=== PATIENT | female | born 1980 | race Caucasian/White ===

== ENCOUNTER 2018-05-14 11:09 | Outpatient (REF) | payer BC, SELFPAY ==
--- NOTE | 2018-05-14 10:30 | PAPFT_PTH ---
PATIENT: Kaylee Duckworth LOC: [facility] U#:[id number] AGE/SX: 38/F ROOM: RE05/14/[address]: Roselia Smith NP : 1980 BED: DIS: 05/14/2018 SPEC #: [id number] RECD: 05/14/18 13:13 STATUS: DARIANA CABRAL #: [id number] HANNAH: 05/14/18 10:[address]: Roselia Smith NP DEPT: [facility] Cytology RECD BY: Hanh Bobo ENTERED: 05/14/18 13:13 SP TYPE: PAPFT OTHR DR: Gideon Chavez Tissues: 1 - CX/ENDOCX FOR PAP SMEARS Procedures: PAP THIN PREP/UVM Screening HPV DNA PROBE Comments: [id number]
[2018-05-14 21:23] LABS: Anion Gap 8.4 mmol/L (3-11); BUN 8 mg/dL (7-18); CO2 31.6 mmol/L (21.0-32.0); Chloride 103 mmol/L (98-107); Cholesterol 133 mg/dL (50-200); Glucose 87 mg/dL (70-100); HDL Cholesterol 54 mg/dL (40-60); LDL CHOLESTEROL 70 mg/dL (<100); Magnesium 1.7 mg/dL (1.8-2.4); Potassium 3.6 mmol/L (3.5-5.1); Sodium 143 mmol/L (136-145)
[2018-05-14 22:04] LABS: Triglyceride < 25 mg/dL (30-150)
== END 2018-05-14 11:29 ==
LOC: LBN 11:09
PROVIDERS: PCP Specialist/Technologist Athletic Trainer; Visit Provider Nurse Practitioner Women's Health
DX: Z00.00 Encounter for general adult medical examination without abnormal findings (principal); Z13.220 Encounter for screening for lipoid disorders; Z13.228 Encounter for screening for other metabolic disorders; Z12.4 Encounter for screening for malignant neoplasm of cervix; Z11.51 Encounter for screening for human papillomavirus (HPV)
CPT/HCPCS: 80048; 80061; 83721; 88142; 83735; 87624

== ENCOUNTER 2018-07-13 14:44 | Outpatient (CLI) | payer BC, SELFPAY ==
[2018-07-14 19:58] LABS: Squash, IgE <0.35 kU/L
[2018-07-15 14:07] LABS: IgA 165 mg/dL (85-499); Interpretation SEE COMMENTS; Tissue Transglutaminase IgA >100.0 U/mL (<4.0)
== END 2018-07-13 15:04 ==
PROVIDERS: PCP Specialist/Technologist Athletic Trainer; Visit Provider Otolaryngology Otolaryngology/Facial Plastic Surgery
DX: R19.7 Diarrhea, unspecified (principal); R14.0 Abdominal distension (gaseous); R22.0 Localized swelling, mass and lump, head; R23.2 Flushing
CPT/HCPCS: 36415; 82784; 83516; 86003

== ENCOUNTER 2019-05-17 08:57 | Outpatient (REF) | payer BC, SELFPAY ==
[2019-05-17 21:23] LABS: Abs Immature Grans 0.01 k/cumm (0.0-0.09); Absolute Eosinophil Count 0.34 k/cumm (0.0-0.7); Absolute Lymphocyte Count 1.24 k/cumm (1.2-3.4); Absolute Monocyte Count 0.47 k/cumm (0.11-0.7); Absolute Neutrophil Count 5.61 k/cumm (1.2-6.7); Basophils % 1.3; Eosinophils % 4.4; HGB 14.6 g/dL (12.0-15.5); Immature Grans % 0.1; Mean Corpuscular Hemoglobin 31.7 pg (27.0-33.0); Mean Corpuscular Volume 93.3 fL (80-95); Mean Platelet Volume 9.8 fL (8.0-11.0); Neutrophils % 72.2; Platelet Count 311 x1000/uL (130-400); RBC 4.61 m/cumm (4.00-5.20); RBC Distribution Width 12.1 % (11.7-14.6); White Blood Cell Count 7.77 k/cumm (4.4-10.8)
[2019-05-17 22:10] LABS: TSH (W/Ref FT4) 1.49 uIU/mL (0.36-3.74)
== END 2019-05-17 09:17 ==
LOC: NCHCN 08:57
PROVIDERS: PCP Specialist/Technologist Athletic Trainer; Visit Provider Nurse Practitioner Family
DX: Z00.00 Encounter for general adult medical examination without abnormal findings (principal); K90.0 Celiac disease
CPT/HCPCS: 84443; 85025

== ENCOUNTER 2019-05-31 18:21 | Outpatient (REF) | payer OTHER, SELFPAY ==
--- NOTE | 2019-05-31 11:34 | SKI_PTH ---
PATIENT: Kaylee Duckworth LOC: [place] U#:[id number] AGE/SX: 39/F ROOM: RE05/31/[address]: Geovanni Bello DO : 1980 BED: DIS: 05/31/2019 SPEC #: [id number] RECD: 05/31/19 18:26 STATUS: DARIANA RELynn #: [id number] HANNAH: 05/31/19 11:[address]: Geovanni Bello DEPT: Surgical Specimen RECD BY: Hanh Bobo ENTERED: 05/31/19 18:27 SP TYPE: SUZETTE GUERRA DR: iGdeon Chavez Tissues: 1 - SKIN BIOPSY(SHAVE/PUNCH) Procedures: SKIN LEVEL 4 Comments: [id number]
== END 2019-05-31 18:41 ==
LOC: LBN 18:21
PROVIDERS: PCP Specialist/Technologist Athletic Trainer; Visit Provider Otolaryngology Otolaryngology/Facial Plastic Surgery
DX: L82.1 Other seborrheic keratosis (principal)
CPT/HCPCS: 88305

== ENCOUNTER 2020-01-27 04:17 | Outpatient (CLI) | payer OTHER, SELFPAY ==
[2020-01-27 10:04] LABS: Abs Immature Grans 0.03 10^3/uL (0.0-0.06); Absolute Basophil Count 0.08 10^3/uL (0.0-0.2); Absolute Eosinophil Count 0.24 10^3/uL (0.0-0.7); Absolute Lymphocyte Count 1.38 10^3/uL (1.2-3.4); Absolute Monocyte Count 0.44 10^3/uL (0.1-0.8); Absolute Neutrophil Count 6.19 10^3/uL (1.2-6.7); Eosinophils % 2.9; HCT 42.3 % (36.0-46.0); HGB 14.4 g/dL (11.2-15.7); Immature Grans % 0.4; Lymphocytes % 16.5; MCH 31.6 pg (27.0-33.0); MPV 8.9 fL (8.0-11.0); Monocytes % 5.3; Neutrophils % 73.9; Nucleated RBC 0 %; Platelet Count 315 10^3/uL (130-400); RBC 4.55 10^6/uL (3.93-5.22); RDW 11.9 % (11.7-14.6); RDW-SD 40.7 fL; WBC 8.36 10^3/uL (4.4-10.8)
[2020-01-27 10:55] LABS: Iron 141 ug/dL (50-170); Total Iron Binding Capacity 248 ug/dL (250-450); Transferrin Sat 57 % (15-50)
[2020-01-27 11:10] LABS: Ferritin 46 ng/mL (8-252)
[2020-01-27 13:09] LABS: Vitamin D 25 Total 27.7 ng/ml (30-100)
[2020-01-28 09:55] LABS: IgA 173 mg/dL (85-499)
[2020-01-28 16:12] LABS: Zinc, Serum 0.65 mcg/mL (0.66-1.10)
[2020-01-29 12:44] LABS: Free Retinol (Vitamin A) 36.3 mcg/dL (32.5-78.0)
== END 2020-01-27 04:37 ==
PROVIDERS: PCP Nurse Practitioner Family; Visit Provider Internal Medicine Gastroenterology
DX: K90.0 Celiac disease (principal)
CPT/HCPCS: 36415; 82306; 82784; 82728; 82746; 83540; 83550; 84590; 84630; 85025

== ENCOUNTER 2020-03-22 02:42 | Outpatient (CLI) | payer OTHER, SELFPAY ==
--- NOTE | 2020-03-22 | DI.DEXA_ITS ---
EXAM: XR DEXA BONE DENSITY W/WO YOHANNES CLINICAL HISTORY: CELIAC DISEASE, ? OSTEOPENIA OR OSTEOPOROSIS,K90.0 TECHNIQUE: COMPARISON: No exams were available for comparison FINDINGS: DEXA scan was performed according to the usual protocol. Findings for left hip scanning are T-score -2.2 with left femoral neck T-score -1.5. Findings for lumbar spine scanning are T-score -1.5. Findings for left forearm scanning are T-score -0.3 IMPRESSION: Findings consistent with osteopenia according to the WHO criteria. The lateral vertebral scanogram s hows no evidence of a vertebral compression fracture. RADIATION DOSE DELIVERED: Total DLP
== END 2020-03-22 03:02 ==
PROVIDERS: PCP Nurse Practitioner Family; Visit Provider Internal Medicine Gastroenterology
DX: K90.0 Celiac disease (principal); M85.89 Other specified disorders of bone density and structure, multiple sites
CPT/HCPCS: 77080

== ENCOUNTER 2020-05-15 08:10 | Outpatient (CLI) | payer OTHER, SELFPAY ==
--- NOTE | 2020-05-15 | DI.RAD_ITS ---
EXAM: XR HAND RT COMPLETE CLINICAL HISTORY: HAND PAIN, M79.643. TECHNIQUE: 2D digital imaging was performed. COMPARISON: CR XR HAND LT COMPLETE from 05/15/2020 FINDINGS: BONES: No acute fracture is present. No bony destructive lesion is seen. JOINTS: No dislocation present. SOFT TISSUE: Normal. IMPRESSION: Unremarkable radiographs of the right hand. DATA REPOSITORY: RADIATION DOSE DELIVERED:
--- NOTE | 2020-05-15 | DI.RAD_ITS ---
EXAM: XR HAND LT COMPLETE CLINICAL HISTORY: LT RING FINGER PALMAR AREA PAIN, ? GANGLION CYST, SYSTEMIC NODULES, FH RA. TECHNIQUE: 2D digital imaging was performed. COMPARISON: No exams were available for comparison FINDINGS: BONES: No acute fracture is present. No bony destructive lesion is seen. JOINTS: No dislocation present. SOFT TISSUE: Normal. IMPRESSION: Unremarkable radiographs of the left hand. DATA REPOSITORY: RADIATION DOSE DELIVERED:
== END 2020-05-15 08:30 ==
PROVIDERS: PCP Nurse Practitioner Family; Visit Provider Nurse Practitioner Family
DX: M79.641 Pain in right hand (principal); M79.642 Pain in left hand
CPT/HCPCS: 73130

== ENCOUNTER 2020-06-14 02:37 | Outpatient (CLI) | payer OTHER, SELFPAY ==
--- NOTE | 2020-06-14 15:00 | DI.MAMMO_ITS ---
EXAM: MG MAMMO SCREENING CLINICAL HISTORY: screening TECHNIQUE: Bilateral full field digital CC and MLO mammographic images were obtained with 3D tomosyn thesis and utilizing computer aided detection (CAD). COMPARISON: None. FINDINGS: Masses/Architectural Distortion: None seen. Microcalcifications: No suspicious pleomorphic-type are seen. Skin Thickening/Nipple Retraction: None. IMPRESSION: 1. No significant interval change with no specific features of malignancy noted. 2. Unless there is more urgent need, screening mammography is recommended, as per [employer] guidelines. BI-RADS Category 1 - Negative Breast Density - Category B - Scattered areas of fibroglandular density Breast density category C or D implies that the patient has dense breast tissue. Dense breast tissue is very common and is not abnormal but dense breast tissue can make it harder to find cancer on a ma mmogram. Also, dense breast tissue may increase their breast cancer risk. This information about the result of the mammogram report was provided to the patient to raise their awareness. Use this report when you speak with the patient about their risks for breast cancer, which includes their family hist ory. At that time, you may recommend for more screening tests (Ultrasound or MRI) as they might be us eful based on their risk. A negative radiographic report should not delay biopsy if a dominant or clinically suspicious mass is present. Up to ten percent of cancers are not identified on mammography. A negative report may reinforce clinical impression. Adenosis and dense breasts may obscure an underlying neoplasm. False positive reports average 6 to 10%. Patient will receive a letter notifying them of these results.
== END 2020-06-14 02:57 ==
PROVIDERS: PCP Nurse Practitioner Family; Visit Provider Nurse Practitioner Women's Health
DX: Z12.31 Encounter for screening mammogram for malignant neoplasm of breast (principal)
CPT/HCPCS: 77063; 77067

== ENCOUNTER 2021-02-05 14:19 | Outpatient (REF) | payer OTHER, SELFPAY ==
[2021-02-05 20:59] LABS: TSH (W/Ref FT4) 1.26 uIU/mL (0.36-3.74)
== END 2021-02-05 14:20 | disposition home or self-care (01) ==
LOC: NCHCN 14:19
PROVIDERS: PCP Nurse Practitioner Family; Referring Provider Nurse Practitioner Family; Visit Provider Nurse Practitioner Family
DX: R63.5 Abnormal weight gain (principal)
CPT/HCPCS: 84443

== ENCOUNTER 2021-04-13 18:01 | Outpatient (REF) | payer OTHER, SELFPAY ==
--- NOTE | 2021-04-13 15:27 | SKI_PTH ---
PATIENT: Kaylee Duckworth LOC: [facility] U#:[id number] AGE/SX: 41/F ROOM: RE04/13/[address]: PABLITO Mcdowell : 1980 BED: DIS: 04/13/2021 SPEC #: [id number] RECD: 04/13/21 18:05 STATUS: DARIANA RELynn #: [id number] HANNAH: 04/13/21 15:[address]: Shivam Alanis DEPT: Surgical Specimen RECD BY: Hanh Bobo ENTERED: 04/13/21 18:06 SP TYPE: SUZETTE GUERRA DR: Yisel Hernández Tissues: 1 - SKIN BIOPSY(SHAVE/PUNCH) Procedures: SKIN LEVEL 4 Comments: [id number]
== END 2021-04-13 18:02 | disposition home or self-care (01) ==
LOC: LBN 18:01
PROVIDERS: PCP Nurse Practitioner Family; Visit Provider Physician Assistant
DX: D23.39 Other benign neoplasm of skin of other parts of face (principal)
CPT/HCPCS: 88305

== ENCOUNTER 2021-05-15 13:42 | Outpatient (REF) | payer OTHER, SELFPAY ==
[2021-05-15 16:18] LABS: Calculated LDL 78 mg/dL (<100); Cholesterol 142 mg/dL (<200); Glucose 83 mg/dL (74-106); HDL Cholesterol 57 mg/dL (40-60); Triglyceride 36 mg/dL (<150)
== END 2021-05-15 13:43 | disposition home or self-care (01) ==
LOC: NCHCN 13:42
PROVIDERS: PCP Nurse Practitioner Family; Visit Provider Nurse Practitioner Family
DX: Z00.00 Encounter for general adult medical examination without abnormal findings (principal); Z13.1 Encounter for screening for diabetes mellitus; Z13.220 Encounter for screening for lipoid disorders
CPT/HCPCS: 80061; 82947

== ENCOUNTER 2021-06-28 03:00 | Outpatient (CLI) | payer OTHER, SELFPAY ==
[2021-06-28 11:16] LABS: ESR 1 mm/hr (0-20)
[2021-06-28 11:59] LABS: C-Reactive Protein 0.06 mg/dL (0.0-0.3)
[2021-06-28 21:11] LABS: Thyroglobulin Antibody <15 U/mL (<=60); Thyroperoxidase Antibody <28 U/mL (<=60)
[2021-06-29 14:25] LABS: ANA Interpretation Negative (Negative)
[2021-07-03 13:12] LABS: dsDNA Ab, IgG 12.9 IU/mL (<30.0)
== END 2021-06-28 03:01 | disposition home or self-care (01) ==
LOC: LBO 03:01
PROVIDERS: PCP Nurse Practitioner Family; Visit Provider Physician Assistant
DX: K90.0 Celiac disease (principal); L56.8 Other specified acute skin changes due to ultraviolet radiation; L50.8 Other urticaria
CPT/HCPCS: 36415; 85652; 86376; 84443; 86003; 86038; 86140; 86225

== ENCOUNTER 2021-08-07 00:40 | Outpatient (CLI) | payer OTHER, SELFPAY ==
--- NOTE | 2021-08-07 16:27 | DI.MAMMO_ITS ---
Exam(s) MAMMO SCREENING EXAM: MAMMO SCREENING CLINICAL HISTORY: screening. TECHNIQUE: Bilateral full field digital CC and MLO mammographic images were obtained with 3D tomosyn thesis and utilizing computer aided detection (CAD). COMPARISON: Prior mammograms of May 2020 was reviewed. FINDINGS: There are no CAD designations. There has been no significant change in appearance and distribution of the fibroglandular tissue. There are no new spiculated masses nor malignant appearing microcalcification groups. There is no significant architectural distortion nor skin thickening-retraction. IMPRESSION: No radiographic evidence of malignancy. BI-RADS Category 1 - Negative Breast Density - Category B - Scattered areas of fibroglandular density Breast density Category C or D implies that the patient has dense breast tissue. Dense breast tissue can make it harder to find cancer on a mammogram. Dense breast tissue is also associated with an incr eased risk of breast cancer. This information about the result of the mammogram report was provided to the patient to raise their awareness. Use this report when you speak with the patient about their risks for breast cancer, which includes their family history. At that time, you may recommend additional screening tests (Ultrasoun d or MRI) as these tests may add significant information. A negative radiographic report should not delay biopsy if a dominant or clinically suspicious mass is present. Up to ten percent of cancers are not identified on mammography. A negative report may reinforce clinical impression. Adenosis and dense breasts may obscure an underlying neoplasm. False positive reports average 6 to 10%. Patient will receive a letter notifying them of these results.
== END 2021-08-07 01:00 ==
PROVIDERS: PCP Nurse Practitioner Family; Visit Provider Nurse Practitioner Women's Health
DX: Z12.31 Encounter for screening mammogram for malignant neoplasm of breast (principal)
CPT/HCPCS: 77063; 77067

== ENCOUNTER → 2021-12-20 02:25 | Outpatient (CLI) | payer OTHER, SELFPAY ==
--- NOTE | 2021-12-20 | DI.DEXA_ITS ---
Exam(s) XR DEXA BONE DENSITY W/WO YOHANNES EXAM: XR DEXA BONE DENSITY W/WO YOHANNES CLINICAL HISTORY: OSTEOPENIA, M85.80 TECHNIQUE: COMPARISON: CR XR DEXA BONE DENSITY W/WO YOHANNES from 03/22/2020 FINDINGS: Lateral Spine Image: Unremarkable. No compression deformities identified. Left hip: Total T-Score: -2.1. This compares to -2.2 on the prior examination for improvement in the bone can line examiner al density. Total Z-Score: -1.9 T- and Z-scores: Findings consistent with osteopenia. Lumbar Spine: Total T-Score: -1.6. This compares to -1.5 on the prior examination which is a decrease in the bone m ineral density. Total Z-Score: -1.3 T- and Z-scores: Findings are consistent with osteopenia. IMPRESSION: No evidence of osteoporosis.
== END ==
PROVIDERS: PCP Nurse Practitioner Family; Visit Provider Nurse Practitioner Family
DX: Z13.820 Encounter for screening for osteoporosis (principal); M85.89 Other specified disorders of bone density and structure, multiple sites
CPT/HCPCS: 77080

== ENCOUNTER 2022-08-26 03:38 | Outpatient (CLI) | payer OTHER, SELFPAY ==
[2022-08-27 19:20] LABS: Avocado, IgE <0.35 kU/L; Corn-Food IgE <0.35 kU/L; Cucumber IgE <0.35 kU/L; Soybean IgE <0.35 kU/L; Watermelon, IgE <0.35 kU/L
[2022-08-27 19:29] LABS: Egg Whole IgE <0.10 kU/L
== END 2022-08-26 03:39 | disposition home or self-care (01) ==
PROVIDERS: PCP Nurse Practitioner Family; Visit Provider Physician Assistant
DX: J30.1 Allergic rhinitis due to pollen (principal); Z01.82 Encounter for allergy testing
CPT/HCPCS: 36415; 86003

== ENCOUNTER 2022-09-01 20:39 | Emergency (ER) | payer OTHER, SELFPAY ==
[2022-09-01] VITALS (16 sets, daily range): BP systolic 98–141; BP diastolic 51–75; PULSE 73–88; RESP 14–21; TEMP 36.2; O2SAT 97–100
--- NOTE | 2022-09-01 21:00 | DI.CT_ITS ---
Exam(s) CT ABDOMEN PELVIS W EXAM: CT ABDOMEN PELVIS W CLINICAL HISTORY: periumbilical pain x1hr TECHNIQUE: Imaging Protocol: Axial computed tomography images with coronal and sagittal reformatted images were created and reviewed CONTRAST MATERIAL: Intravenous: Omnipaque 350 Contrast volume:100 mL Oral: No COMPARISON: No exams were available for comparison FINDINGS: ABDOMEN: Lung Bases: Emphysematous changes are seen in the lung bases. Liver: Normal density. No measurable mass. Portal, Superior Mesenteric, and Splenic Veins: Unremarkable. Gallbladder and Biliary Tract: No radiodense calculus or dilation. Pancreas: Normal density, no abnormal calcifications or inflammatory process. Spleen: Normal. Adrenals: No masses seen. Kidneys: Normal size, contour and axis. No radiodense stones or obstructive uropathy. No masses seen. Abdominal Aorta: Abdominal portion non-dilated. Mild atherosclerosis. Bowel: No obstruction or bowel wall thickening. Appendix is unremarkable. Peritoneal Cavity: No significant ascites, collection or mesenteric inflammatory response. No free a ir. Lymph Nodes: Within normal limits. Bones: Within normal limits for the patient's age. Soft Tissues: There is a small fat containing umbilical hernia. PELVIS: Bladder: Symmetric distention, no gross wall thickening. There is a tiny focus of air in the dependen t urinary bladder. This may represent recent instrumentation such as with catheterization. Please c orrelate clinically.. Reproductive Organs: Unremarkable as visualized. There is an IUD which appears in good position. Lymph Nodes: Within normal limits. Bones: Within normal limits for the patient's age. IMPRESSION: No acute abdominal or pelvic process. RADIATION DOSE DELIVERED: 942.8mGy.cm Total DLP DATA REPOSITORY: All CT scans at this facility are submitted to the National Radiology Data Registry (NRDR) Dose Index Registry (DIR) with the [employer] (A[employer]). RADIATION OPTIMIZATION: All CT scans at this facility use at least one of these dose optimization te chniques: automated exposure control; mA and/or kV adjustment per patient size (includes targeted exa ms where dose is matched to clinical indication); or iterative reconstruction.
--- NOTE | 2022-09-01 21:05 | ED.GENADUL_ITS ---
Discharge Plan Disposition Patient Disposition: Home Condition: Stable Discharge Details Clinical Impression: Abdominal pain Primary Care Provider: Yisel Hernández ED Provider: Arnulfo Dunn Home Meds and New Rx's Prescriptions: Continued Mirena 20 mcg/24 hr (5 years) intrauterine device 1 insert IY ONCE cholecalciferol (vitamin D3) 25 mcg (1,000 unit) capsule 25 mcg PO DAILY epinephrine [EpiPen 2-Micheal] 0.3 mg/0.3 mL auto-injector 0.3 mg IM Q5-15M PRN Rx Instructions: do not exceed 3 doses per episode ibuprofen 800 mg tablet 800 mg PO Q8H PRN (Reason: pain) Qty: 28 0RF Rx Instructions: Instructed to take with food. Use for shortest possible time. baclofen 5 mg tablet See Rx Instructions PO TID PRN (Reason: Back Spasm) Qty: 30 1RF Rx Instructions: 5 mg tab. Take 1-2 three times a day PRN; multivitamin with iron Tablet 1 tab PO 1XD Discharge Instructions Instructions: Abdominal Pain (ED) Additional Instructions: Continue bowel rest. Clear liquids only tonight and tomorrow morning. You can advance your diet tomorrow afternoon as tolerated. Please contact your primary care physician to arrange follow-up. Return to the ER immediately for any worsening or new concerning symptoms. Referrals: Yisel Hernández [Primary Care Provider] - Medical Decision Making 2100 --43-year-old female here with sudden onset severe abdominal pain about an hour prior to arrival. Pain has since improved but still has some discomfort. She is focally tender periumbilical and right abdomen. Concern for acute appendicitis. Plan to obtain CT of the abdomen pelvis to assess for acute surgical pathology. -- Labs reviewed and nondiagnostic. CT of the abdomen pelvis was interpreted by radiology: IMPRESSION: No significant abnormality. Patient reassessed and noted significant improvement - pain resolved. Plan for discharge with outpatient follow-up. Disposition decision was made weighing the risks and benefits of hospitalization versus outpatient treatment, the risk for further decompensation, and the patient's wishes. The patient was stable. Prior to discharge, my usual and customary return precautions were reviewed with the patient - this included follow-up instructions and reason to return to the emergency department if condition worsens, does not improve as expected, or other new concerns arise. Lab Data Lab results reviewed: Yes I reviewed the patient's lab results. Labs: Laboratory Tests Range/Units 09/01/22 09/01/22 09/01/22 20:45 20:50 20:50 WBC (4.4-10.8) 10^3/uL 7.73 RBC (3.93-5.22) 10^6/uL 4.49 Hgb (11.2-15.7) g/dL 14.2 Hct (36.0-46.0) % 41.3 MCV (80-95) fL 92 MCH (27.0-33.0) pg 31.6 MCHC (32.0-36.0) % 34.4 RDW (11.7-14.6) % 12.4 Plt Count (130-400) 10^3/uL 307 MPV (8.0-11.0) fL 9.5 Immature Gran % 0.4 Neutrophils % 44.6 Lymphocytes % 40.1 Monocytes % 8.7 Eosinophils % 4.5 Basophils % 1.7 Nucleated RBC % (0.0-0.3) % 0.0 Absolute Neutrophils (1.2-6.7) 10^3/uL 3.45 Absolute Lymphocytes (1.2-3.4) 10^3/uL 3.10 Absolute Monocytes (0.1-0.8) 10^3/uL 0.67 Absolute Eosinophils (0.0-0.7) 10^3/uL 0.35 Absolute Basophils (0.0-0.2) 10^3/uL 0.13 Sodium (136-145) mmol/L 140 Potassium (3.5-5.1) mmol/L 3.8 Chloride (98-107) mmol/L 104 Carbon Dioxide (21.0-32.0) mmol/L 28.9 Anion Gap (3-11) mmol/L 7.1 BUN (7-18) mg/dL 14 Creatinine (0.55-1.02) mg/dL 1.1 H Est GFR (CKD-EPI 2020) (mL/min/1.73m2) 64.34 Glucose (74-106) mg/dL 94 Calcium (8.5-10.1) mg/dL 9.1 Total Bilirubin (0.2-1.0) mg/dL 1.1 H AST (15-37) U/L 32 ALT (14-59) U/L 28 Alkaline Phosphatase (46-116) U/L 57 Total Protein (6.4-8.2) g/dL 6.5 Albumin (3.4-5.0) g/dL 3.8 Lipase (16-77) U/L 31 Urine Color (Yellow) Yellow Urine Clarity (Clear) Clear Urine pH (5-8) 6.0 Ur Specific [place] (1.005-1.025) 1.025 Urine Protein (Negative) mg/dL Negative Urine Ketones (Negative) mg/dL Negative Urine Blood (Negative) Negative Urine Nitrite (Negative) Negative Urine Bilirubin (Negative) Negative Urine Urobilinogen (Up to 0.2) mg/dL 1.0 H Ur Leukocyte Esterase (Negative) Negative Urine Glucose (Negative) mg/dL Negative HPI General Mode of arrival: ambulatory . Date/Time Provider Initiated Documentation: 09/01/22 20:49 . Limitations to Documentation: no limitations . Information obtained by: patient . HPI Narrative: 42-year-old female with history of celiac disease, here with chief complaint of abdominal pain. Patient notes about an hour prior to arrival she had sudden onset of severe mid abdominal pain localized to her bellybutton. She had associated nausea and chills. Patient notes pain was sharp and unbearable. Patient continues to have some discomfort in the area although is now mild. She has no pain radiated to the right side of her abdomen. Patient did have normal bowel movement this morning. No recent bright red blood per rectum or melena. Related Data Home Medications Medication Instructions Recorded Confirmed levonorgestrel 21 mcg/24 hours (8 1 insert intrauterine ONCE 05/29/18 09/01/22 yrs) 52 mg intrauterine device (Mirena) cholecalciferol (vitamin D3) 25 25 mcg PO DAILY 05/29/20 09/01/22 mcg (1,000 unit) capsule epinephrine 0.3 mg/0.3 mL 0.3 mg IM Q5-15M PRN 05/29/20 09/01/22 injection, auto-injector (EpiPen 2-Micheal) ibuprofen 800 mg tablet 800 mg PO Q8H PRN pain #28 tabs 10/12/20 09/01/22 baclofen 5 mg tablet See Rx Instructions PO TID PRN 10/30/20 09/01/22 Back Spasm #30 tabs multivitamin with iron 1 tab PO 1XD 09/01/22 09/01/22 Previous Rx's Medication Instructions Recorded ibuprofen 800 mg tablet 800 mg PO Q8H PRN pain #28 tabs 10/12/20 baclofen 5 mg tablet See Rx Instructions PO TID PRN 10/30/20 Back Spasm #30 tabs Allergies Allergy/AdvReac Type Severity Reaction Status Date / Time squash Allergy Severe Anaphylaxsi Verified 09/01/22 20:53 s No Known Drug Allergies Allergy Verified 09/01/22 20:53 General Stated Complaint: Abd Prob BREANNE: 3 Review of Systems All systems reviewed & are unremarkable except as noted in HPI and below Constitutional Constitutional: Denies fever(s) Gastrointestinal Gastrointestinal: Reports as per HPI PFSH All Active Problems (Updated 09/01/22 @ 23:03 by Arnulfo Dunn MD) Abdominal pain (Acute) Food allergy (Acute) Environmental allergies (Acute) Chronic Urticaria (Acute) LPRD (laryngopharyngeal reflux disease) (Acute) Insomnia (Acute) Low back pain potentially associated with radiculopathy (Acute) Neoplasm of unspecified behavior of bone, soft tissue, and skin (Acute) IUD surveillance (Acute) Celiac disease (Acute) Dysmenorrhea (Chronic) managed with IUD Medical History Infertility 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 Surgical History History of dilation and curettage x3 s/p missed ab Family History Father , lung ca Heart attack Lung cancer Maternal Grandmother Breast cancer Maternal Grandfather Diabetes Brother Prediabetes Social History Smoking/Tobacco Use Status: Former Tobacco Use Quit Date: 02/22/17 Tobacco: How many years used: 24 Smoking risk assessment performed?: Yes Alcohol Intake: never Substance use type: does not use Do you feel safe at home: Yes Do you feel safe in your relationship?: Yes Female Reproductive History Menstrual Duration of menses: 6-7 days control method: progestin IUCD History History 4 Para 1 Hx # Term Pregnancies Multiple births Hx # Pregnancies Ectopic pregnancies AB induced Hx Number of Living Children AB spontaneous 3 Exam Const General: cooperative and no acute distress HENMT Mouth: moist mucous membranes Eyes Conjunctivae: normal conjunctivae Sclera: normal sclerae EOM: EOM intact bilaterally Neck Neck: trachea midline and supple Resp Auscultation: clear to auscultation bilaterally, no rales, no rhonchi and no wheezes Cardio Rate: regular rate and not tachycardic Rhythm: regular rhythm GI Palpation: soft, not firm, no guarding, no masses, not rigid and tender in the RLQ and periumbilically Skin General skin exam: no rashes or lesions noted Neuro General: patient alert, patient awake and tone normal Cognition: normal cognition Extrem General: no edema Psych Appearance: grossly normal Mental Status: mental status grossly normal Course Vital Signs Vital signs: Vital Signs Temperature 36.2 C L 09/01/22 20:45 Pulse 73 09/01/22 20:45 Respiratory Rate 18 09/01/22 20:45 Blood Pressure 130/74 09/01/22 20:45 Pulse Oximetry 99 09/01/22 20:45 Temperature 36.2 C L 09/01/22 20:45 Pulse 73 09/01/22 20:45 Respiratory Rate 18 09/01/22 20:45 Respiratory Effort Normal 09/01/22 20:49 Blood Pressure 130/74 09/01/22 20:45 Blood Pressure Position Supine 09/01/22 20:45 Pulse Oximetry 99 09/01/22 20:45 Oxygen Delivery Method Room Air 09/01/22 20:45 Oxygen Flow Rate 0 09/01/22 20:45 Pain Level 9 09/01/22 20:49
[2022-09-01 21:18] LABS: Abs Immature Grans 0.03 10^3/uL (0.0-0.06); Absolute Basophil Count 0.13 10^3/uL (0.0-0.2); Absolute Eosinophil Count 0.35 10^3/uL (0.0-0.7); Absolute Monocyte Count 0.67 10^3/uL (0.1-0.8); Absolute Neutrophil Count 3.45 10^3/uL (1.2-6.7); Basophils % 1.7; Eosinophils % 4.5; HCT 41.3 % (36.0-46.0); HGB 14.2 g/dL (11.2-15.7); Immature Grans % 0.4; Lymphocytes % 40.1; MCH 31.6 pg (27.0-33.0); MCHC 34.4 % (32.0-36.0); MCV 92 fL (80-95); MPV 9.5 fL (8.0-11.0); Monocytes % 8.7; Neutrophils % 44.6; Platelet Count 307 10^3/uL (130-400); RBC 4.49 10^6/uL (3.93-5.22); RDW 12.4 % (11.7-14.6); RDW-SD 41.9 fL; WBC 7.73 10^3/uL (4.4-10.8)
[2022-09-01 21:20] LABS: Bilirubin Negative (Negative); Blood Negative (Negative); Clarity Clear (Clear); Glucose Negative (Negative); Ketones Negative (Negative); Leukocyte Esterase Negative (Negative); Nitrite Negative (Negative); Specific Gravity 1.025 (1.005-1.025)
[2022-09-01] MEDS: Omnipaque 350 MG/ML 100 ML BTL IJ (21:28)
[2022-09-01] MEDS: Normal Saline - Diluent 50 ML VIAL IJ (21:29)
[2022-09-01 21:37] LABS: ALT 28 U/L (14-59); AST 32 U/L (15-37); Albumin 3.8 g/dL (3.4-5.0); Alkaline Phosphatase 57 U/L (46-116); Anion Gap 7.1 mmol/L (3-11); BUN 14 mg/dL (7-18); Bilirubin, Total 1.1 mg/dL (0.2-1.0); CO2 28.9 mmol/L (21.0-32.0); CREATININE 1.1 mg/dL (0.55-1.02); Calcium 9.1 mg/dL (8.5-10.1); Chloride 104 mmol/L (98-107); Estimated GFR 64.34 (mL/min/1.73m2); Glucose 94 mg/dL (74-106); Lipase 31 U/L (16-77); Potassium 3.8 mmol/L (3.5-5.1); Sodium 140 mmol/L (136-145); Total Protein 6.5 g/dL (6.4-8.2)
[2022-09-01] MEDS: Normal Saline Flush 10 ML SYR IVP (21:37)
--- NOTE | 2022-09-01 22:10 | DI.VRAD_ITS ---
PROCEDURE INFORMATION: Exam: CT Abdomen And Pelvis With Contrast Exam date and time: 09/01/2022 9:29 PM Age: 42 years old Clinical indication: Abdominal pain; Patient HX: Periumbilical pain x1hr TECHNIQUE: Imaging protocol: Computed tomography of the abdomen and pelvis with contrast. COMPARISON: No relevant prior studies available. FINDINGS: Liver: Normal. No mass. Gallbladder and bile ducts: Gallbladder is contracted. No biliary duct Pancreas: Normal. No ductal dil dilatation. ation. Spleen: Normal. No splenomegaly. Adrenal glands: Normal. No mass. Kidneys and ureters: Normal. No hydronephrosis. Stomach and bowel: Unremarkable. No obstruction. No mucosal thickening. Appendix: Normal appendix. Intraperitoneal space: Unremarkable. No free air. No significant fluid collection. Vasculature: Calcified atherosclerotic disease of proximal common iliac arteries. No aneurysm. Lymph nodes: Unremarkable. No enlarged lymph nodes. Urinary bladder: Unremarkable as visualized. Reproductive: Intrauterine device in place. Uterus and adnexa are otherwise unremarkable. Bones/joints: Unremarkable. No acute fracture. Soft tissues: Unremarkable. IMPRESSION: No significant abnormality. Dictated and Authenticated by: Pete Ibarra MD. Ordering:HUY Arredondo MD
== END 2022-09-01 23:18 | disposition home or self-care (01) ==
PROVIDERS: Emergency Provider Student in an Organized Health Care Education/Training Program; PCP Nurse Practitioner Family
DX: R10.33 Periumbilical pain (principal)
CPT/HCPCS: 80053; 81025; 83690; 99285; 74177; 81003; 85025; 99283; J3490

== ENCOUNTER 2022-09-11 09:50 | Day surgery (SDC) | payer OTHER, SELFPAY ==
--- NOTE | 2022-09-11 07:03 | W.PM.ENDDOP ---
Date of service: 09/11/22 Time of Service: 11:25 Endoscopy Report DATE OF PROCEDURE: 09/11/22 PRE-OP DIAGNOSIS: Celiac and abdominal pain POST-OP DIAGNOSIS: same (and gastritis) PROCEDURE: EGD with biopsies SURGEON: Ashlee Valladares ANESTHESIA TYPE: General:No Airway ESTIMATED BLOOD LOSS: 2 PATHOLOGY: other (Bx of duodenum, stomach and GE junction) COMPLICATIONS: None DISPOSITION: same day INDICATIONS: Mrs Liriano is a pleasant 42-year-old female who has a history of celiac disease and GI complaints.? She has been fairly stable until few months ago when she started to have more gas and discomfort.? She feels quite bloated.? On September 01 she actually went to the emergency department because the pain was much more severe than she has ever had.? It was periumbilical and radiated to the right upper quadrant and epigastric area.? CT scan was unremarkable.? I discussed with her the fact that even though the CT scan was negative she could still have some biliary issues.? This may also be due to gastritis or ulcers.? She should have had an upper endoscopy when she was diagnosed with celiac a few years ago.? I think it is reasonable to start with an EGD with biopsies as per GI recommendations.? If there are no ulcers and no inflammation then I will order an ultrasound of her gallbladder to assess that a little bit better. The upper endoscopy procedure was reviewed with her in detail as well as the risks and complications.? Risks, benefits and complications have been reviewed. Complications include but are not limited to bleeding, pain, perforation, sore throat, aspiration, and adverse reaction to the medications.? Questions were entertained and answered to their satisfaction and they wished to proceed. No guarantees were given or implied.? The patient seemed to understand the risks benefits and complications as described. PROCEDURE DESCRIPTION: After informed consent was obtained the patient was take to the procedure room and placed in a supine position. Monitors were applied and a time out was done. The patients name, date of , procedure type, allergies to medications and metal in their body was reviewed. A bite block was placed and the patient was sedated. Once sedated and comfortable the gastroscope was advanced through the oropharynx which was grossly normal into the esophagus. The proximal and mid-esophagus were normal. In the distal esophagus there was mild inflammation noted. The scope was advanced into the stomach and through the pylorus into the 3rd portion of the duodenum. The duodenum was noted to be normal. Biopsies were done. The scope was retracted back into the stomach. There was inflammation noted throughout the stomach. Biopsies were done of the antrum and Body to rule out H. pylori. There were no ulcers. The scope was retroflexed. The cardia and fundus were noted to be normal. There was no hiatal hernia noted. The scope was retracted back into the esophagus and biopsies were done of the GE junction to rule out Enrique's. The Z line was regular. The GE junction was at 38 cm. The scope was removed and the patient was woken up and taken back to [facility] in stable condition. Follow up: 2 weeks. start Pepcid 40 mg BID
--- NOTE | 2022-09-11 07:08 | W.PM.DSUDISC ---
Date of service: 09/11/22 Time of Service: 11:25 Discharge Plan Disposition Patient Disposition: Home Condition: Stable Discharge Details Reason For Visit: Celiac disease and abdominal pain Attending Provider: Ashlee Valladares Primary Care Provider: Yisel Hernández Home Meds and New Rx's Prescriptions: New famotidine [Pepcid] 40 mg tablet 40 mg PO BID Qty: 60 0RF Continued Mirena 20 mcg/24 hr (5 years) intrauterine device 1 insert IY ONCE cholecalciferol (vitamin D3) 25 mcg (1,000 unit) capsule 25 mcg PO DAILY epinephrine [EpiPen 2-Micheal] 0.3 mg/0.3 mL auto-injector 0.3 mg IM Q5-15M PRN Rx Instructions: do not exceed 3 doses per episode glucosamine HCl 1,500 mg tablet 1,500 mg PO DAILY Rx Instructions: administer with a meal loratadine [Allergy Relief (loratadine)] 10 mg tablet 10 mg PO DAILY ibuprofen 800 mg tablet 800 mg PO Q8H PRN (Reason: pain) Qty: 28 0RF Rx Instructions: Instructed to take with food. Use for shortest possible time. baclofen 5 mg tablet See Rx Instructions PO TID PRN (Reason: Back Spasm) Qty: 30 1RF Rx Instructions: 5 mg tab. Take 1-2 three times a day PRN; hydroxyzine HCl 25 mg tablet 25 mg PO BID PRN cholecalciferol (vitamin D3) 125 mcg (5,000 unit) capsule 125 mcg PO DAILY ferrous sulfate [Feosol] 325 mg (65 mg iron) tablet 325 mg PO DAILY multivitamin with iron Tablet 1 tab PO 1XD Discharge Instructions Instructions: Gastritis (DC), Diet for Stomach Ulcers and Gastritis (ED) Additional Instructions: Findings: Inflamation of the stomach Follow up: 2 weeks in the office Please call if you develop: fevers >101.5 Nausea or Vomiting Abdominal pain that is not transient Rectal bleeding that is more then a tbsp A hard abdomen and inability to pass gas DAY SURGERY UNIT POST ENDOSCOPY INSTRUCTIONS Instructions for everyone who is given Anesthesia: For your safety, please do the following for the next 24 Hours: a. Do not drive or operate dangerous equipment b. Do not drink alcohol beverages or use any recreational drugs for the first 24 hours or while taking pain medications. The medications in your body may have a reaction that can be dangerous. c. Do not make any important decisions or sign any important papers 1. Generally there are no restrictions on your activity after a day or so has gone by, but you may feel a bit fatigued for a few days. 2. After you arrive home you may have a light meal and return to a normal diet as you can tolerate it without feeling sick to your stomach. 3. After surgery, you may feel pain or discomfort. This should be only transient, but if it persists please contact your doctor. 4. If there are any questions regarding the findings of your procedure, please feel free to contact your doctor. 6. If you are unable to contact your doctor with a problem, contact the hospital at [phone]. 7. Continue all your regular medications unless directed otherwise. I understand the above instructions and have no questions. Signature of Patient or Responsible Adult Escort Date/Time Name of Responsible Adult Escort Signature of Nurse Date/Time Referrals: Ashlee Valladares MD [ [facility] STAFF PHYSICIAN] - 09/27/22 11:00 am Activity:: Activity as Tolerated Diet:: as above Discharge Orders Discharge Orders: Discharge Order (Routine); Ordered 09/11/22 Ordered By: Ashlee Valladares
[2022-09-11 09:50] VITALS: BP 136/93; PULSE 66; RESP 16; TEMP 36.5; O2SAT 99
[2022-09-11] MEDS: Lactated Ringers 1,000 ML 80 ML IV (10:22)
--- NOTE | 2022-09-11 10:38 | ANES.PREOP_ITS ---
General Info Date of Service Date Performed: 09/11/22 Height: 5 ft 7 in Weight: 73.8 kg Body Mass Index (BMI): 25.4 Surgical Procedure: Operation Date: 09/11/22 11:50 Proposed Procedure Side Surgeon p Gastroscopy Ashlee Valladares MD Actual Procedure Side Surgeon p Gastroscopy Not Applicable Ashlee Valladares MD Pre-Op Diagnosis Post-Op Diagnosis Celiac disease and abdominal pain Celiac disease and abdominal pain Meds Allergies and Home Medications Allergies Allergy/AdvReac Type Severity Reaction Status Date / Time adhesive tape Allergy Severe Verified 09/11/22 10:00 barley Allergy Severe Verified 09/11/22 10:00 grass pollen Allergy Severe Verified 09/11/22 10:00 squash Allergy Severe Anaphylaxsi Verified 09/11/22 10:00 s No Known Drug Allergies Allergy Verified 09/11/22 10:00 cow milk Allergy Severe Uncoded 09/11/22 10:00 mold Allergy Intermediate runny Uncoded 09/11/22 10:00 nose, sneezing Home Medication Medication Instructions Recorded levonorgestrel 21 mcg/24 hours (8 1 insert intrauterine ONCE 05/29/18 yrs) 52 mg intrauterine device (Mirena) cholecalciferol (vitamin D3) 25 25 mcg PO DAILY 05/29/20 mcg (1,000 unit) capsule epinephrine 0.3 mg/0.3 mL 0.3 mg IM Q5-15M PRN 05/29/20 injection, auto-injector (EpiPen 2-Micheal) ibuprofen 800 mg tablet 800 mg PO Q8H PRN pain #28 tabs 10/12/20 baclofen 5 mg tablet See Rx Instructions PO TID PRN 10/30/20 Back Spasm #30 tabs multivitamin with iron 1 tab PO 1XD 09/01/22 cholecalciferol (vitamin D3) 125 125 mcg PO DAILY 09/05/22 mcg (5,000 unit) capsule ferrous sulfate 325 mg (65 mg 325 mg PO DAILY 09/05/22 iron) tablet (Feosol) hydroxyzine HCl 25 mg tablet 25 mg PO BID PRN 09/05/22 glucosamine HCl 1,500 mg tablet 1,500 mg PO DAILY 09/06/22 loratadine 10 mg tablet (Allergy 10 mg PO DAILY 09/06/22 Relief (loratadine)) PFSH Active Problems Active Problems: Problem Status Onset Code Osteopenia M85.80 Snoring R06.83 Abdominal pain R10.9 Food allergy Z91.018 Environmental allergies Z91.09 Chronic Urticaria L50.8 LPRD (laryngopharyngeal reflux disease) K21.9 Insomnia G47.00 Low back pain potentially associated with radiculopathy M54.5 Neoplasm of unspecified behavior of bone, soft tissue, and skin D49.2 IUD surveillance Z30.431 Celiac disease K90.0 Dysmenorrhea N94.6 Medical History Medical History Hives Infertility 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 Skin lesion of face Surgical History Surgical History History of dilation and curettage x3 s/p missed ab S/P colonoscopy [facility] [place] Tobacco Smoking/Tobacco Use Status: Former Tobacco Use Alcohol Alcohol Intake: never Substance Use Substance use: Rarely Substance use type: marijuana Prental History History 4 Para 1 Hx # Term Pregnancies Multiple births Hx # Pregnancies Ectopic pregnancies AB induced Hx Number of Living Children AB spontaneous 3 Vital Signs and Lab Results Vital Signs Most Recent Vital Signs in EMR: Most Recent Vital Signs Temp Pulse Resp BP Pulse Ox 36.5 C 66 16 136/93 H 99 09/11/22 09:50 09/11/22 09:50 09/11/22 09:50 09/11/22 09:50 09/11/22 09:50 Point of Care Results Point of Care Results: POC- Test(urine) Negative 09/11/22 10:29 Lab Results Blood Type / Crossmatch: No Data to Display Complete Blood Count: White Blood Count 7.73 10^3/uL (4.4-10.8) 09/01/22 20:50 Red Blood Count 4.49 10^6/uL (3.93-5.22) 09/01/22 20:50 Hemoglobin 14.2 g/dL (11.2-15.7) 09/01/22 20:50 Hematocrit 41.3 % (36.0-46.0) 09/01/22 20:50 Platelet Count 307 10^3/uL (130-400) 09/01/22 20:50 Complete Metabolic Panel: Sodium 140 mmol/L (136-145) 09/01/22 20:50 Potassium 3.8 mmol/L (3.5-5.1) 09/01/22 20:50 Chloride 104 mmol/L (98-107) 09/01/22 20:50 Carbon Dioxide 28.9 mmol/L (21.0-32.0) 09/01/22 20:50 BUN 14 mg/dL (7-18) 09/01/22 20:50 Creatinine 1.1 mg/dL (0.55-1.02) H 09/01/22 20:50 Est GFR (CKD-EPI 2020) 64.34 (mL/min/1.73m2) 09/01/22 20:50 Calcium 9.1 mg/dL (8.5-10.1) 09/01/22 20:50 Albumin 3.8 g/dL (3.4-5.0) 09/01/22 20:50 Glucose 94 mg/dL (74-106) 09/01/22 20:50 Liver Function Panel: Alanine Aminotransferase (ALT/SGPT) 28 U/L (14-59) 09/01/22 20: 50 Aspartate Amino Transf (AST/SGOT) 32 U/L (15-37) 09/01/22 20:50 Coagulation Panel: No Data to Display Cardiac Panel: No Data to Display Arterial Blood Gas: No Data to Display Venous Blood Gas: No Data to Display Pancreas Panel: Lipase 31 U/L (16-77) 09/01/22 20:50 Thyroid Panel: No Data to Display Infectious Disease: No Data to Display Blood Cultures: No Data to Display Toxicology Panel: 2 No Data to Display Panel: No Data to Display Anesthesia Assessment and Plan Anesthesia History Personal History: No History of Anesthesia Complications Family History: No Family History of Anesthesia Complications Exercise Tolerance Exercise Tolerance: Metabolic Equivalents>4 Pertinent Negatives Pertinent Negatives: No Symptoms of GERD, No Major Cardiovascular Symptoms or Complaints and No Major Pulmonary Symptoms or Complaints Cardiac & Pulmonary Exam Cardiac Exam: Normal S1/S2 Heart Sounds Pulmonary Exam: Clear Bilateral Breath Sounds Implantable Cardiac Device Does patient have a Pacemaker or an ICD?: No Airway Exam Known Difficult Airway: No Mallampati Class: 2 Mouth Opening: Normal (> 3cm) Thyromental Distance: Greater than 3 cm Neck Range of Motion: Full ROM Neck Circumference: Normal Teeth Condition: Normal Dentition ASA Classification ASA Score: ASA 2 Emergency Case?: No NPO Status NPO Status: NPO Clears >2 hours, Solids >8 hours Status Status: Negative HCG Anesthesia Plan Resuscitation Status: Full Code Anesthesia Technique: General Anesthesia Airway Planned: Natural Airway Monitors Used: Standard Monitors
[2022-09-11 10:43] VITALS: BMI 25.4
--- NOTE | 2022-09-11 11:04 | PGE_ITS ---
Date of Service Date of service: 09/11/22 Time of Service: 11:04 Assessment and Plan Assessment and plan (1) Abdominal pain: Status: Acute Assessment and plan: Risks, benefits and complications were reviewed again. Patient has no questions and understands the risks discussed. She wishes to proceed (2) Celiac disease: Status: Acute Subjective Subjective Interval history since last seen: Patient seen in [facility]. She is doing well. She has no questions Exam Resp Effort & Inspection: normal respiratory effort Auscultation: clear to auscultation bilaterally Cardio Rate: regular rate Rhythm: regular rhythm Objective Last Vital Signs Temp 97.7 F 09/11/22 09:50 Pulse 66 09/11/22 09:50 Resp 16 09/11/22 09:50 BP 136/93 H 09/11/22 09:50 Pulse Ox 99 09/11/22 09:50 Time Spent with Patient Time Spent with Patient: <25 minutes Time was spent: counseling the patient
--- NOTE | 2022-09-11 11:14 | STOM_PTH ---
PATIENT: Kaylee Duckworth LOC: [facility] U#:[id number] AGE/SX: 42/F ROOM: RE09/11/[address]: Ashlee Valladares MD : 1980 BED: DIS: 09/11/2022 SPEC #: [id number] RECD: 09/11/22 12:49 STATUS: DARIANA RELynn #: [id number] HANNAH: 09/11/22 11:[address]: Ashlee Valladares DEPT: Surgical Specimen RECD BY: Hanh Bobo ENTERED: 09/11/22 12:50 SP TYPE: STOMACH OTHR DR: Yisel Hernández Tissues: 1 - BIOPSY BOWEL 2 - STOMACH BIOPSY 3 - STOMACH BIOPSY 4 - ESOPHAGUS BIOPSY Procedures: GROSS AND MICRO LEVEL 4 Comments: [id number]
[2022-09-11 11:27] VITALS: BP 125/75; PULSE 79; RESP 16; TEMP 37; O2SAT 99
[2022-09-11 11:55] VITALS: BP 128/86; PULSE 55; RESP 16; TEMP 36.6; O2SAT 100
[2022-09-11] MEDS: Calcium Carbonate *TUMS* 500 MG CHEW 1000 MG PO (11:58)
[2022-09-11] MEDS: Famotidine 20 MG TAB 40 MG PO (11:59)
--- NOTE | 2022-09-11 11:59 | W.ANESPOSTOP ---
Postoperative Evaluation Date, Time and Location Date Performed: 09/11/22 Time Performed: 11:59 Patient Location: Day Surgery Unit Vital Signs Most Recent Imported Vital Signs: Most Recent Vital Signs Temp Pulse Resp BP Pulse Ox 37 C 79 16 125/75 99 09/11/22 11:27 09/11/22 11:27 09/11/22 11:27 09/11/22 11:27 09/11/22 11:27 Pain Score Most Recent Pain Score: Most Recent Pain Score Pain Level 0 09/11/22 11:27 Assessment Mental Status: Awake (Alert & Oriented to Patient Baseline) Airway and Respiratory Function: Patent airway with normal (patient baseline) respiratory exam Cardiovascular Function: Hemodynamically Stable Hydration Status: Adequately Hydrated Nausea & Vomiting: No Nausea or Vomiting Pain: Pt. Denies Any Pain Peripheral Nerve Block: Patient did not receive a nerve block
== END 2022-09-11 12:58 | disposition home or self-care (01) ==
PROVIDERS: PCP Nurse Practitioner Family; Visit Provider Surgery
PROC: 0DJ68ZZ Inspection of Stomach, Via Natural or Artificial Opening Endoscopic (ICD-10-PCS; CPT 43235; principal; 2022-09-11 11:45)
DX: K90.0 Celiac disease; K29.70 Gastritis, unspecified, without bleeding; K31.89 Other diseases of stomach and duodenum
CPT/HCPCS: 43239; 81025; 88305

== ENCOUNTER 2022-09-18 02:52 | Outpatient (CLI) | payer OTHER, SELFPAY ==
[2022-09-18 12:56] LABS: ALT 22 U/L (14-59); AST 21 U/L (15-37); Alkaline Phosphatase 51 U/L (46-116); Anion Gap 5.5 mmol/L (3-11); BUN 13 mg/dL (7-18); Bilirubin, Direct 0.3 mg/dL (0.0-0.2); Bilirubin, Total 1.7 mg/dL (0.2-1.0); CO2 27.5 mmol/L (21.0-32.0); Chloride 104 mmol/L (98-107); Estimated GFR 72.13 (mL/min/1.73m2); Glucose 80 mg/dL (74-106); Sodium 137 mmol/L (136-145); Total Protein 6.9 g/dL (6.4-8.2)
[2022-09-19 23:08] LABS: Avocado, IgE <0.35 kU/L; Corn-Food IgE <0.35 kU/L; Cucumber IgE <0.35 kU/L; Soybean IgE <0.35 kU/L; Watermelon, IgE <0.35 kU/L
[2022-09-19 23:37] LABS: Egg Whole IgE <0.10 kU/L
== END 2022-09-18 02:53 | disposition home or self-care (01) ==
PROVIDERS: PCP Nurse Practitioner Family; Visit Provider Nurse Practitioner Family
DX: J31.0 Chronic rhinitis (principal); R89.9 Unspecified abnormal finding in specimens from other organs, systems and tissues; Z91.018 Allergy to other foods; Z91.09 Other allergy status, other than to drugs and biological substances; T78.1XXD Other adverse food reactions, not elsewhere classified, subsequent encounter
CPT/HCPCS: 36415; 80048; 80076; 86001; 86003

== ENCOUNTER 2022-09-26 15:11 | Outpatient (REF) | payer OTHER, SELFPAY | END 2022-09-26 15:12 | disposition home or self-care (01) | LOC: NCHCN 15:11 | PROVIDERS: PCP Nurse Practitioner Family; Visit Provider Nurse Practitioner Family | DX: R35.0 Frequency of micturition (principal) | CPT/HCPCS: 87086 ==

== ENCOUNTER 2022-10-15 10:32 | Outpatient (REF) | payer OTHER, SELFPAY ==
--- NOTE | 2022-10-15 09:40 | PAPFT_PTH ---
PATIENT: Kaylee Duckworth LOC: [facility] U#:[id number] AGE/SX: 42/F ROOM: RE10/15/[address]: Roselia Smith NP : 1980 BED: DIS: 10/15/2022 SPEC #: [id number] RECD: 10/15/22 12:59 STATUS: DARIANA REQ #: [id number] HANNAH: 10/15/22 09:[address]: Roselia Smith NP DEPT: [facility] Cytology RECD BY: Hanh Bobo ENTERED: 10/15/22 12:59 SP TYPE: PAPFT OTHR DR: Yisel Hernández Tissues: 1 - CX/ENDOCX FOR PAP SMEARS Procedures: PAP THIN PREP/UVM Screening HPV DNA PROBE Comments: [id number]
== END 2022-10-15 10:33 | disposition home or self-care (01) ==
LOC: LBN 10:32
PROVIDERS: PCP Nurse Practitioner Family; Visit Provider Nurse Practitioner Women's Health
DX: Z12.4 Encounter for screening for malignant neoplasm of cervix (principal); Z11.51 Encounter for screening for human papillomavirus (HPV)
CPT/HCPCS: 88142; 87624

== ENCOUNTER 2023-01-30 04:13 | Outpatient (CLI) | payer OTHER, SELFPAY ==
[2023-01-30 17:01] LABS: Abs Immature Grans 0.01 10^3/uL (0.0-0.06); Absolute Basophil Count 0.08 10^3/uL (0.0-0.2); Absolute Eosinophil Count 0.25 10^3/uL (0.0-0.7); Absolute Lymphocyte Count 2.27 10^3/uL (1.2-3.4); Absolute Monocyte Count 0.52 10^3/uL (0.1-0.8); Absolute Neutrophil Count 3.57 10^3/uL (1.2-6.7); Basophils % 1.2; Eosinophils % 3.7; HCT 41.1 % (36.0-46.0); HGB 13.9 g/dL (11.2-15.7); Immature Grans % 0.1; Lymphocytes % 33.9; MCH 31.4 pg (27.0-33.0); MCHC 33.8 % (32.0-36.0); MCV 93 fL (80-95); MPV 9.2 fL (8.0-11.0); Monocytes % 7.8; Neutrophils % 53.3; Platelet Count 274 10^3/uL (130-400); RBC 4.43 10^6/uL (3.93-5.22); RDW 11.5 % (11.7-14.6); RDW-SD 39.8 fL
[2023-01-30 17:49] LABS: Iron 79 ug/dL (50-170); Total Iron Binding Capacity 246 ug/dL (250-450); Transferrin Sat 32 % (15-50)
[2023-01-30 18:12] LABS: Vitamin D 25 Total 43.7 ng/mL (30-100)
[2023-01-30 18:17] LABS: ALT 22 U/L (14-59); AST 17 U/L (15-37); Albumin 3.7 g/dL (3.4-5.0); Alkaline Phosphatase 58 U/L (46-116); Bilirubin, Total 1.5 mg/dL (0.2-1.0); Ferritin 76 ng/mL (8-252); Folate 13.6 ng/mL (8.6-20.0); Total Protein 6.6 g/dL (6.4-8.2); Vitamin B12 600 pg/mL (193-986)
[2023-01-30 18:34] LABS: Bilirubin, Direct 0.3 mg/dL (0.0-0.2)
[2023-02-03 12:13] LABS: Copper, Serum 105 mcg/dL (77-206)
[2023-02-03 12:46] LABS: Tissue Transglutaminase IgA 1.9 U/mL (<4.0)
[2023-02-03 13:13] LABS: Zinc, S 56 mcg/dL (60-106)
== END 2023-01-30 04:14 | disposition home or self-care (01) ==
PROVIDERS: PCP Nurse Practitioner Family; Visit Provider Internal Medicine Gastroenterology
DX: K90.0 Celiac disease (principal); E80.6 Other disorders of bilirubin metabolism
CPT/HCPCS: 36415; 80076; 82306; 82525; 84630; 82607; 82728; 82746; 83540; 83550; 85025

== ENCOUNTER 2023-03-14 10:31 | Day surgery (SDC) | payer OTHER, SELFPAY ==
--- NOTE | 2023-03-13 20:04 | HPE_ITS ---
Date of service: 03/14/23 Time of Service: 12:39 Assessment and Plan Assessment and plan (1) Abdominal pain: Status: Inactive Assessment and plan: We reviewed the plan for diagnostic colonoscopy today, and anticipated biopsies. She has no new questions. We will proceed as planned. History of Present Illness History of Present Illness Chief Complaint: Abdominal pain Narrative: Kaylee is 42 years old, and she is referred here for colonoscopy. Her past medical history is most significant for celiac disease, which was first noted during elimination diet because of recurrent yeast infections. This was confirmed with serum testing demonstrating TTG IGA > 100. She has had some mild improvement in her symptoms over the years with a strict gluten-free diet. Most recently, she has developed midepigastric abdominal symptoms. She underwent EGD in August of this year that had clinical features of gastritis, but biopsies were more consistent with gastropathy. She sees gastroenterology at [facility], and is currently undergoing work-up for mildly elevated serum bilirubin level. The pain typically starts around the umbilicus and radiates towards the flanks. Although she has had some improvement in her reflux symptoms, her other abdominal pain has persisted, and is now associated with an approximate 10 pound unintentional weight loss. Since her last office visit, she started on some Neurontin to help with restless leg syndrome, and she has had some improvement in her those symptoms. PFSH All Active Problems TMJ (temporomandibular joint disorder) (Acute) Osteopenia (Acute) Snoring (Acute) Food allergy (Acute) Environmental allergies (Acute) Chronic Urticaria (Acute) LPRD (laryngopharyngeal reflux disease) (Acute) Insomnia (Acute) Low back pain potentially associated with radiculopathy (Acute) Neoplasm of unspecified behavior of bone, soft tissue, and skin (Acute) IUD surveillance (Acute) Celiac disease (Acute) Dysmenorrhea (Chronic) managed with IUD Medical History PLMD (periodic limb movement disorder) Skin lesion of face Hives Infertility 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 Surgical History [place] [facility] [place] of dilation and curettage x3 s/p missed ab Family History Father , lung ca Heart attack Lung cancer Maternal Grandmother Breast cancer Maternal Grandfather Diabetes Brother Prediabetes Social History Smoking/Tobacco Use Status: Former Tobacco Use Quit Date: 02/22/17 Tobacco: How many years used: 24 Smoking risk assessment performed?: Yes Alcohol Intake: current Alcohol Intake frequency: holidays/special occasions only Alcohol type: beer Drug use: Rarely Substance use type: marijuana Details: gummies a few months ago Housing: house Do you feel safe at home: Yes Do you feel safe in your relationship?: Yes Female Reproductive History Menstrual Duration of menses: 6-7 days control method: progestin IUCD History History 4 Para 1 Hx # Term Pregnancies Multiple births Hx # Pregnancies Ectopic pregnancies AB induced Hx Number of Living Children AB spontaneous 3 Meds Allergies and Home Medications Allergies Allergy/AdvReac Type Severity Reaction Status Date / Time adhesive tape Allergy Severe Verified 03/14/23 10:54 barley Allergy Severe Verified 03/14/23 10:54 grass pollen Allergy Severe Verified 03/14/23 10:54 squash Allergy Severe Anaphylaxsi Verified 03/14/23 10:54 s Penicillins Allergy Unknown on allergy Verified 03/14/23 10:54 testing cow milk Allergy Severe Uncoded 03/14/23 10:54 mold Allergy Intermediate runny Uncoded 03/14/23 10:54 nose, sneezing Home Medications Medication Instructions Recorded Confirmed Type levonorgestrel 21 mcg/24 hours (8 1 insert intrauterine ONCE 05/29/18 03/14/23 History yrs) 52 mg intrauterine device (Mirena) epinephrine 0.3 mg/0.3 mL 0.3 mg IM Q5-15M PRN 05/29/20 03/14/23 History injection, auto-injector (EpiPen 2-Micheal) multivitamin with iron 1 tab PO 1XD 09/01/22 03/14/23 History ferrous sulfate 325 mg (65 mg 325 mg PO DAILY 09/05/22 03/14/23 History iron) tablet (Feosol) hydroxyzine HCl 25 mg tablet 25 mg PO BID PRN 09/05/22 03/14/23 History loratadine 10 mg tablet (Allergy 10 mg PO DAILY 09/06/22 03/14/23 History Relief (loratadine)) cholecalciferol (vitamin D3) 25 50 mcg PO DAILY 01/29/23 03/14/23 History mcg (1,000 unit) capsule psyllium husk 3.4 gram/5.4 gram 2 tsp PO DAILY 01/29/23 03/14/23 History oral powder (Metamucil) gabapentin 100 mg capsule 100 mg PO DAILY 03/14/23 03/14/23 History Exam Const General: cooperative, healthy appearing and not in acute distress Neck Neck: normal visual inspection, no lymphadenopathy and supple Resp Effort & Inspection: normal respiratory effort Auscultation: clear to auscultation bilaterally Cardio Jugular venous pressure: no JVD Rate: regular rate Rhythm: regular rhythm Heart Sounds: S1 normal and S2 normal GI Inspection: normal to inspection Palpation: soft, no guarding, no hernias and nontender Percussion: normal to percussion Auscultation: normal bowel sounds Neuro General: patient alert, patient awake and patient oriented x3 Psych Appearance: grossly normal Time Spent Time spent with Patient: <40 minutes Time was spent: preparing to see the patient(eg.review tests) and counseling the patient
--- NOTE | 2023-03-13 20:06 | W.PM.DSUDISC ---
Date of service: 03/14/23 Time of Service: 13:26 Discharge Plan Disposition Patient Disposition: Home Condition: Good Discharge Details Reason For Visit: Diagnostic colonoscopy Attending Provider: Marlon Fisher Primary Care Provider: Yisel Hernández Home Meds and New Rx's Prescriptions: Continued Mirena 20 mcg/24 hr (5 years) intrauterine device 1 insert IY ONCE epinephrine [EpiPen 2-Micheal] 0.3 mg/0.3 mL auto-injector 0.3 mg IM Q5-15M PRN Rx Instructions: do not exceed 3 doses per episode cholecalciferol (vitamin D3) 25 mcg (1,000 unit) capsule 50 mcg PO DAILY loratadine [Allergy Relief (loratadine)] 10 mg tablet 10 mg PO DAILY Metamucil 3.4 gram/5.4 gram powder 2 tsp PO DAILY Rx Instructions: mix into at least 4 oz water or juice before administering hydroxyzine HCl 25 mg tablet 25 mg PO BID PRN ferrous sulfate [Feosol] 325 mg (65 mg iron) tablet 325 mg PO DAILY multivitamin with iron Tablet 1 tab PO 1XD gabapentin 100 mg capsule 100 mg PO DAILY Discharge Instructions Additional Instructions: Kaylee, we were able to complete your colonoscopy today without any difficulty. The quality of your prep was excellent, and I could see everything very nicely. I did not see any active signs of inflammation, or anything else that would explain your abdominal discomfort. I did perform random biopsies along the length of the colon to rule out other forms of colitis that may not be evident to the naked eye. Incidentally, I also found a very small single polyp. I removed this completely. I will have it sent off and tested. Information from that polyp can be used to help guide future screening colonoscopies. Once I have all those results I will be in touch. 1. If tolerated, consume a soft, low fiber diet for 1-2 days. [address] Do not drive, drink alcohol, operate machinery, make critical decisions, or do activities that require coordination or balance for 24 hours. 3. Because air was put into your colon during the procedure, expelling air from your rectum (passing gas or farting) is normal. 4. You may not have a bowel movement for 1-3 days because of the colonoscopy prep. This is normal. 5. Go directly to the emergency room if you notice any of the following: Develop chills (warm to touch), or if you have a thermometer and your temperature is above 101 Difficulty breathing or difficultly swallowing Persistent vomiting Severe abdominal pain, other than gas cramps Severe chest pain Black, tarry stools Any bleeding ? exceeding one tablespoon 6. Call your physician if the site where your intravenous was started becomes red, swollen, painful, and warm to touch. 7. Your physician has reviewed your pre-procedure medications. Please continue to take those medications as previously ordered. You will be given specific information/education regarding any changes to your medications before leaving. Activity:: Activity as Tolerated Diet:: As Tolerated Discharge Orders Discharge Orders: Discharge Order (Routine); Ordered 03/13/23 Ordered By: Marlon Fisher DS: Diagnosis Discharge Diagnosis (1) Abdominal pain: Status: Inactive
--- NOTE | 2023-03-13 20:08 | COLE_ITS ---
Date of service: 03/14/23 Time of Service: 13:28 Colonoscopy Report Date of procedure: 03/14/23 Pre-op diagnosis general: Abdominal pain Post-op diagnosis procedure note: other (Normal-appearing colonoscopy) Procedure: Colonoscopy with random biopsies and single polypectomy Surgeon: Marlon Fisher Anesthesia Type: General:No Airway Estimated blood loss (mL): 5 Pathology: other (0.25 cm colon polyp at 45 cm from the anus; random colon biopsies) Complications: None Disposition: same day Indications: Kaylee is 42 years old, and she is referred here for colonoscopy because of abdominal pain. The pain typically starts around the umbilicus and radiates towards the flanks. Although she has had some improvement in her reflux symptoms, her other abdominal pain has persisted, and is now associated with an approximate 10 pound unintentional weight loss. Prep: Miralax/Dulcolax Procedure Start Time: 12:47 Procedure End Time: 13:08 Retraction Time: 16 Findings: Normal-appearing colonoscopy, 0.25 cm polyp at 45 cm Procedure Description: After the induction of monitored anesthetic care, and with the patient in left lateral decubitus position, I began by performing an external anorectal exam.? Perineum and skin were normal, as was the anal verge.? There was no evidence of external hemorrhoids.? Next, I performed a digital rectal exam.? I did not appreciate any abnormal findings.? Next, I advanced a colonoscope into the rect al vault.? I performed retroflexion.? This appeared normal.? Using insufflation, I then advanced the colonoscope beyond the rectal folds and into the sigmoid colon before advancing towards the cecum.? The scope was noted to be in the cecum by identification of the ileocecal valve and appendiceal orifice.? I then began withdrawing the colonoscope using repeated irrigation as necessary for full evaluation of the colonic mucosa. In order to rule out microscopic colitis, I did perform random biopsies in the cecum, ascending, transverse, descending and sigmoid colons. These were all sent as a single specimen. All of these biopsies were performed with cold forceps, and there was no worrisome bleeding. Around 45 cm from the anal verge I identified a 0.25 cm polyp. ?It appeared sessile in character. ?I was able to remove this with a cold forcep polypectomy. ?I examined the site, and there was minimal bleeding. ?Once this was completed, I continued to withdraw the scope and examine the remainder of the colonic mucosa. Once the scope was withdrawn to the level of the rectum, great care was taken to examine portions of the rectal folds.? The quality of the bowel prep using the [facility] prep score was 3, 3, 3 from right to left. finally, the scope was withdrawn and the patient was brought to the same-day surgery recovery unit as the anesthetic wore off. ?The findings and instructions were shared with the patient prior to discharge.
[2023-03-14 10:41] VITALS: BP 143/62; PULSE 67; RESP 17; TEMP 36.5; O2SAT 100
[2023-03-14] MEDS: Lactated Ringers 1,000 ML 80 ML IV (11:02)
[2023-03-14 12:37] VITALS: BMI 24.0
--- NOTE | 2023-03-14 12:37 | W.ANESPRE ---
General Info Date of Service Date Performed: 03/14/23 Height: 5 ft 7 in Weight: 69.7 kg Body Mass Index (BMI): 24.0 Surgical Procedure: Operation Date: 03/14/23 12:05 Proposed Procedure Side Surgeon randa Fisher MD Meds Allergies and Home Medications Allergies Allergy/AdvReac Type Severity Reaction Status Date / Time adhesive tape Allergy Severe Verified 03/14/23 10:54 barley Allergy Severe Verified 03/14/23 10:54 grass pollen Allergy Severe Verified 03/14/23 10:54 squash Allergy Severe Anaphylaxsi Verified 03/14/23 10:54 s Penicillins Allergy Unknown on allergy Verified 03/14/23 10:54 testing cow milk Allergy Severe Uncoded 03/14/23 10:54 mold Allergy Intermediate runny Uncoded 03/14/23 10:54 nose, sneezing Home Medication Medication Instructions Recorded levonorgestrel 21 mcg/24 hours (8 1 insert intrauterine ONCE 05/29/18 yrs) 52 mg intrauterine device (Mirena) epinephrine 0.3 mg/0.3 mL 0.3 mg IM Q5-15M PRN 05/29/20 injection, auto-injector (EpiPen 2-Micheal) multivitamin with iron 1 tab PO 1XD 09/01/22 ferrous sulfate 325 mg (65 mg 325 mg PO DAILY 09/05/22 iron) tablet (Feosol) hydroxyzine HCl 25 mg tablet 25 mg PO BID PRN 09/05/22 loratadine 10 mg tablet (Allergy 10 mg PO DAILY 09/06/22 Relief (loratadine)) cholecalciferol (vitamin D3) 25 50 mcg PO DAILY 01/29/23 mcg (1,000 unit) capsule psyllium husk 3.4 gram/5.4 gram 2 tsp PO DAILY 01/29/23 oral powder (Metamucil) gabapentin 100 mg capsule 100 mg PO DAILY 03/14/23 Current Visit Medications: Current Medications Generic Name Dose Route Start Last Admin Trade Name Freq PRN Reason Stop Dose Admin Hyoscyamine Sulfate 0.125 mg 03/13/23 20:09 Hyoscyamine 0.125 Mg Sl/Oral/Chew SL 04/12/23 20:08 DIRECTED PRN Ringer's Solution 1,000 mls @ 80 mls/hr 03/14/23 06:00 03/14/23 11:02 IV 04/12/23 23:59 80 mls/hr INFUSION JONATHON Administration IV Miscellaneous Supplies 1 each 03/14/23 06:00 Iv Access IV 04/12/23 23:59 DIRECTED JONATHON Ondansetron HCl 4 mg 03/13/23 20:09 Ondansetron 4 Mg/2 Ml Vial IVP 04/12/23 20:08 Q4H PRN PRN Nausea / Vomiting Sodium Chloride 0 ml 03/14/23 06:00 Normal Saline Flush 10 Ml Syr IV 04/12/23 23:59 PRN PRN Sodium Chloride 0 ml 03/14/23 06:00 Normal Saline 10 Ml Vial IJ 04/12/23 23:59 DIRECTED PRN Sterile Water 0 ml 03/14/23 06:00 Water,Injection,Sterile 10 Ml Vial IJ 04/12/23 23:59 DIRECTED PRN PFSH Active Problems Active Problems: Problem Status Onset Code TMJ (temporomandibular joint disorder) M26.609 Osteopenia M85.80 Snoring R06.83 Food allergy Z91.018 Environmental allergies Z91.09 Chronic Urticaria L50.8 LPRD (laryngopharyngeal reflux disease) K21.9 Insomnia G47.00 Low back pain potentially associated with radiculopathy M54.5 Neoplasm of unspecified behavior of bone, soft tissue, and skin D49.2 IUD surveillance Z30.431 Celiac disease K90.0 Dysmenorrhea N94.6 Medical History Medical History PLMD (periodic limb movement disorder) Skin lesion of face Hives Infertility 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 Surgical History Surgical History S/P colonoscopy [facility] [place] History of dilation and curettage x3 s/p missed ab Tobacco Smoking/Tobacco Use Status: Former Tobacco Use Alcohol Alcohol Intake: current Alcohol intake frequency: holidays/special occasions only Alcohol type: beer Substance Use Substance use: Rarely Substance use type: marijuana Details: gummies a few months ago Prental History History 4 Para 1 Hx # Term Pregnancies Multiple births Hx # Pregnancies Ectopic pregnancies AB induced Hx Number of Living Children AB spontaneous 3 Vital Signs and Lab Results Vital Signs Most Recent Vital Signs in EMR: Most Recent Vital Signs Temp Pulse Resp BP Pulse Ox 36.5 C 67 17 143/62 H 100 03/14/23 10:41 03/14/23 10:41 03/14/23 10:41 03/14/23 10:41 03/14/23 10:41 Point of Care Results Point of Care Results: POC- Test(urine) Negative 03/14/23 10:46 Lab Results Blood Type / Crossmatch: No Data to Display Complete Blood Count: No Data to Display Complete Metabolic Panel: No Data to Display Liver Function Panel: No Data to Display Coagulation Panel: No Data to Display Cardiac Panel: No Data to Display Arterial Blood Gas: No Data to Display Venous Blood Gas: No Data to Display Pancreas Panel: No Data to Display Thyroid Panel: No Data to Display Infectious Disease: No Data to Display Blood Cultures: No Data to Display Toxicology Panel: No Data to Display Panel: No Data to Display Anesthesia Assessment and Plan Anesthesia History Personal History: No History of Anesthesia Complications Family History: No Family History of Anesthesia Complications Exercise Tolerance Exercise Tolerance: Metabolic Equivalents>4 Pertinent Negatives Pertinent Negatives: No Symptoms of GERD Cardiac & Pulmonary Exam Cardiac Exam: Normal S1/S2 Heart Sounds Pulmonary Exam: Clear Bilateral Breath Sounds Implantable Cardiac Device Does patient have a Pacemaker or an ICD?: No Airway Exam Known Difficult Airway: No Mallampati Class: 2 Mouth Opening: Normal (> 3cm) Thyromental Distance: Greater than 3 cm Neck Range of Motion: Full ROM Neck Circumference: Normal Teeth Condition: Normal Dentition ASA Classification ASA Score: ASA 2 Emergency Case?: No NPO Status NPO Status: NPO Clears >2 hours, Solids >8 hours Status Status: Not Relevant due to Medical History Anesthesia Plan Resuscitation Status: Full Code Anesthesia Technique: General Anesthesia Airway Planned: Natural Airway Monitors Used: Standard Monitors
--- NOTE | 2023-03-14 12:59 | BOWEL_PTH ---
PATIENT: Kaylee Duckworth LOC: [facility] U#:[id number] AGE/SX: 43/F ROOM: RE03/14/[address]: Marlon Fisher MD : [id number] BED: DIS: 03/14/2023 SPEC #: [id number] RECD: 03/14/23 16:41 STATUS: DARIANA REQ #: [id number] HANNAH: 03/14/23 12:[address]: Marlon Fisher DEPT: Surgical Specimen RECD BY: Hanh Bobo ENTERED: 03/14/23 16:41 SP TYPE: Bowel OTHR DR: Yisel Hernández Tissues: 1 - BIOPSY BOWEL 2 - BIOPSY BOWEL Procedures: GROSS AND MICRO LEVEL 4 Comments: [id number]
[2023-03-14 13:15] VITALS: BP 110/63; PULSE 66; RESP 18; TEMP 36.6; O2SAT 99
--- NOTE | 2023-03-14 13:18 | W.ANESPOSTOP ---
Postoperative Evaluation Date, Time and Location Date Performed: 03/14/23 Time Performed: 13:19 Patient Location: Day Surgery Unit Vital Signs Most Recent Imported Vital Signs: Most Recent Vital Signs Temp Pulse Resp BP Pulse Ox 36.5 C 67 17 143/62 H 100 03/14/23 10:41 03/14/23 10:41 03/14/23 10:41 03/14/23 10:41 03/14/23 10:41 Pain Score Most Recent Pain Score: Most Recent Pain Score Pain Level 0 03/14/23 10:41 Assessment Mental Status: Awake (Alert & Oriented to Patient Baseline) Airway and Respiratory Function: Patent airway with normal (patient baseline) respiratory exam Cardiovascular Function: Hemodynamically Stable Hydration Status: Adequately Hydrated Nausea & Vomiting: No Nausea or Vomiting Pain: Pt. Denies Any Pain Peripheral Nerve Block: Patient did not receive a nerve block
[2023-03-14 13:45] VITALS: BP 109/72; PULSE 52; RESP 18; TEMP 36.7; O2SAT 100
== END 2023-03-14 14:00 | disposition home or self-care (01) ==
LOC: SUR 10:31
PROVIDERS: PCP Nurse Practitioner Family; Visit Provider Surgery
PROC: 0DJD8ZZ Inspection of Lower Intestinal Tract, Via Natural or Artificial Opening Endoscopic (ICD-10-PCS; CPT 45378; principal; 2023-03-14 12:00)
DX: R10.9 Unspecified abdominal pain (principal); K63.5 Polyp of colon; K63.89 Other specified diseases of intestine
CPT/HCPCS: 45380; 81025; 88305; J2001

== ENCOUNTER 2023-04-18 01:00 | Outpatient (CLI) | payer OTHER, SELFPAY ==
[2023-04-18 09:30] LABS: TSH 1.86 uIU/mL (0.36-3.74)
[2023-04-21 13:56] LABS: Hepatitis A Antibody IgM Negative (Negative); Hepatitis B Core Antibody Negative (Negative); Hepatitis B surface Ag Negative (Negative); Hepatitis C Ab w Rflx HCV PCR Negative (Negative)
== END 2023-04-18 01:01 | disposition home or self-care (01) ==
PROVIDERS: PCP Nurse Practitioner Family; Visit Provider Nurse Practitioner Family
DX: R53.83 Other fatigue (principal)
CPT/HCPCS: 36415; 86704; 86709; 86803; 87340; 84443

== ENCOUNTER 2023-06-11 02:59 | Outpatient (CLI) | payer OTHER, SELFPAY ==
[2023-06-11 13:04] LABS: Abs Immature Grans 0.03 10^3/uL (0.0-0.06); Absolute Basophil Count 0.12 10^3/uL (0.0-0.2); Absolute Eosinophil Count 0.27 10^3/uL (0.0-0.7); Absolute Lymphocyte Count 1.93 10^3/uL (1.2-3.4); Absolute Monocyte Count 0.55 10^3/uL (0.1-0.8); Basophils % 1.1; Eosinophils % 2.5; HCT 39.2 % (36.0-46.0); HGB 13.1 g/dL (11.2-15.7); Immature Grans % 0.3; Lymphocytes % 17.6; MCH 31.6 pg (27.0-33.0); MCHC 33.4 % (32.0-36.0); MCV 95 fL (80-95); MPV 9.1 fL (8.0-11.0); Neutrophils % 73.5; Platelet Count 257 10^3/uL (130-400); RBC 4.14 10^6/uL (3.93-5.22); RDW 12.6 % (11.7-14.6); RDW-SD 43.5 fL; Reticulocyte 1.3 % (0.5-2.4); WBC 10.98 10^3/uL (4.4-10.8)
[2023-06-11 13:05] LABS: Absolute Neutrophil Count 8.07 10^3/uL (1.2-6.7)
[2023-06-11 13:59] LABS: ALT 23 U/L (14-59); AST 19 U/L (15-37); Albumin 3.7 g/dL (3.4-5.0); Alkaline Phosphatase 57 U/L (46-116); Bilirubin, Direct 0.3 mg/dL (0.0-0.2); GGT 17 U/L (5-55); LDH 179 U/L (81-234); Total Protein 6.1 g/dL (6.4-8.2)
[2023-06-12 10:21] LABS: Haptoglobin 69 mg/dL (32-197)
[2023-06-12 13:25] LABS: ANA Interpretation Negative (Negative)
[2023-06-13 12:35] LABS: Smooth Muscle Ab Screen Negative (Negative)
[2023-06-13 16:38] LABS: Mitochondrial Ab, M2 <0.1 U
== END 2023-06-11 03:00 | disposition home or self-care (01) ==
PROVIDERS: PCP Nurse Practitioner Family; Visit Provider Internal Medicine Gastroenterology
DX: R79.89 Other specified abnormal findings of blood chemistry (principal)
CPT/HCPCS: 36415; 80076; 83516; 82977; 83010; 83615; 85025; 85045; 86038; 86255

== ENCOUNTER 2023-06-19 15:44 | Outpatient (REF) | payer OTHER, SELFPAY ==
[2023-06-21 14:59] LABS: Chlamydia Result Negative (Negative); GC Result Negative (Negative)
== END 2023-06-19 15:45 | disposition home or self-care (01) ==
LOC: LBN 15:44
PROVIDERS: PCP Nurse Practitioner Family; Visit Provider Obstetrics & Gynecology
DX: Z11.3 Encounter for screening for infections with a predominantly sexual mode of transmission (principal)
CPT/HCPCS: 87491; 87591

== ENCOUNTER → 2023-09-25 03:21 | Outpatient (CLI) | payer OTHER, SELFPAY ==
--- NOTE | 2023-09-25 | DI.DEXA_ITS ---
Exam(s) XR DEXA BONE DENSITY W/WO YOHANNES EXAM: XR DEXA BONE DENSITY W/WO YOHANNES CLINICAL HISTORY: M85.80 Other disorders of bone density and structure unspecified site TECHNIQUE: Routine DEXA evaluation of the lumbar spine, hip, or forearm. COMPARISON: CR XR DEXA BONE DENSITY W/WO YOHANNES from 12/20/2021 FINDINGS: Performed on a Holo[employer] unit. Lateral image: No compression fracture evident. Lumbar Spine total T-score: -1.4. Prior reading in November 2021 was -1.6. Hip total T-score:-1.4. Prior reading in November 2021 was -2.1. Independent reading at the level of the femoral neck yields T-score of -1.0 Forearm total T-score: - 0.4. IMPRESSION: Bone mineral density measures in the osteopenia range. Fracture risk is moderate. Note: Any spine fracture indicates 5x risk for subsequent spine fracture and 2x risk for subsequent h ip fracture. World Health Organization criteria for BMD interpretation classify patients: Normal...... T- Score at or above -1.0 Osteopenic... T- Score between -1.0 and -2.5 Osteoporosis... T-Score at or below -2.5
== END ==
PROVIDERS: PCP Nurse Practitioner Family; Visit Provider Nurse Practitioner Family
DX: Z13.820 Encounter for screening for osteoporosis (principal); M85.89 Other specified disorders of bone density and structure, multiple sites
CPT/HCPCS: 77080

== ENCOUNTER 2023-09-25 18:47 | Outpatient (REF) | payer OTHER, SELFPAY ==
[2023-09-25 20:12] LABS: ALT 23 U/L (14-59); AST 28 U/L (15-37); Albumin 4.1 g/dL (3.4-5.0); Alkaline Phosphatase 54 U/L (46-116); Anion Gap 10.4 mmol/L (3-11); BUN 15 mg/dL (7-18); Bilirubin, Total 1.4 mg/dL (0.2-1.0); CO2 25.6 mmol/L (21.0-32.0); Calcium 8.8 mg/dL (8.5-10.1); Chloride 106 mmol/L (98-107); Estimated GFR 71.69 (mL/min/1.73m2); Glucose 95 mg/dL (74-106); Potassium 4.7 mmol/L (3.5-5.1); Sodium 142 mmol/L (136-145); Total Protein 6.9 g/dL (6.4-8.2)
[2023-09-29 16:02] LABS: Misc Referral (UVM) See Comments
== END 2023-09-25 18:48 | disposition home or self-care (01) ==
LOC: NCHCN 18:47
PROVIDERS: PCP Nurse Practitioner Family; Visit Provider Nurse Practitioner Family
DX: Z00.00 Encounter for general adult medical examination without abnormal findings (principal); R17 Unspecified jaundice
CPT/HCPCS: 80053; 82248

== ENCOUNTER 2023-10-10 02:03 | Outpatient (CLI) | payer OTHER, SELFPAY ==
[2023-10-10 13:43] LABS: LDH 199 U/L (81-234)
[2023-10-13 09:47] LABS: Haptoglobin 55 mg/dL (32-197)
== END 2023-10-10 02:04 | disposition home or self-care (01) ==
PROVIDERS: PCP Nurse Practitioner Family; Visit Provider Nurse Practitioner Family
DX: E80.6 Other disorders of bilirubin metabolism (principal)
CPT/HCPCS: 36415; 83010; 83615

== ENCOUNTER 2023-10-21 09:45 | Outpatient (CLI) | payer OTHER, SELFPAY ==
--- NOTE | 2023-10-21 12:59 | W.CARDEVENT ---
Date of service: 10/21/23 Time of Service: 12:59 Cardiac Event Recorder Referring Provider:: Olga Berry Indications:: Palpitations Cardiac Event Note: This is a cardiac event monitor ordered for palpitations. Patient was monitored for 8 days and 15 hours Rhythm throughout was sinus. Average heart rate was 66. Minimum was 53, maximum 155 There were rare ventricular ectopic beats. There was one 5 beat run of nonsustained ventricular tachycardia which occurred during sleep There was no atrial fibrillation, no high-grade AV block, no pauses greater than 3 seconds Symptoms were reported which corresponded to sinus rhythm and sinus tachycardia
== END 2023-10-21 09:46 | disposition home or self-care (01) ==
LOC: CARDOPNVT 09:45
PROVIDERS: PCP Nurse Practitioner Family; Visit Provider Internal Medicine Cardiovascular Disease
DX: R00.2 Palpitations (principal)

== ENCOUNTER → 2023-12-02 01:30 | Outpatient (CLI) | payer OTHER, SELFPAY ==
--- NOTE | 2023-12-02 08:00 | DI.MAMMO_ITS ---
Exam(s) MAMMO SCREENING EXAM: MAMMO SCREENING CLINICAL HISTORY: screening,z12.39 TECHNIQUE: Mammograms were interpreted according to the usual protocol including computer analysis w [employer] CAD system, tomosynthesis and C-view imaging. COMPARISON: 2020 and 2021 FINDINGS: The breasts are composed of scattered fibroglandular densities, Breast Density category B. In the medial left breast, in the anterior tissue on the CC view, there is question of an area nodula rity versus overlying tissue. In the subareolar region of the left breast on the CC view, there is question of an area of nodularit y. Spot compression views and ultrasound are requested for both of these areas. No suspicious microcalcifications are seen in either breast. No skin thickening or abnormal axillary lymph nodes are seen. IMPRESSION: BI-RADS Category 0 - Assessment Incomplete: Need additional imaging evaluation Spot compression views and ultrasound are requested of both breasts. Breast Density - Category B, scattered fibroglandular densities. A negative radiographic report should not delay biopsy if a dominant or clinically suspicious mass is present. Up to ten percent of cancers are not identified on mammography. A negative report may reinforce clinical impression. Adenosis and dense breasts may obscure an underlying neoplasm. False positive reports average 6 to 10%. Patient will receive a letter notifying them of these results.
== END ==
PROVIDERS: PCP Nurse Practitioner Family; Visit Provider Nurse Practitioner Women's Health
DX: Z12.39 Encounter for other screening for malignant neoplasm of breast (principal); Z12.31 Encounter for screening mammogram for malignant neoplasm of breast
CPT/HCPCS: 77063; 77067

== ENCOUNTER 2023-12-02 18:27 | Outpatient (REF) | payer OTHER, SELFPAY ==
[2023-12-02 19:22] LABS: Magnesium 1.7 mg/dL (1.8-2.4)
== END 2023-12-02 18:28 | disposition home or self-care (01) ==
LOC: NCHCN 18:27
PROVIDERS: PCP Nurse Practitioner Family; Visit Provider Physician Assistant Medical
DX: I47.20 Ventricular tachycardia, unspecified (principal); R00.2 Palpitations
CPT/HCPCS: 83735

== ENCOUNTER → 2023-12-05 00:12 | Outpatient (CLI) | payer OTHER, SELFPAY ==
--- NOTE | 2023-12-05 | DI.US_ITS ---
Exam(s) US BREAST RT LIMITED US BREAST LT LIMITED MG MAMMO SCREEN CALL BACK BI EXAM: MG MAMMO SCREEN CALL BACK BI CLINICAL HISTORY: F/U MAMMO 7/, R92.8, BILAT NODULARITY. TECHNIQUE: Spot compression digital Mammography views of the bothbreasts with Tomosynthesis followe d by bilateral breast ultrasound. COMPARISON: MG MG MAMMO SCREENING from 06/14/2020 MG MG MAMMO SCREENING from 08/07/2021 MG MG MAMMO SCREENING from 12/02/2023 US US BREAST RT LIMITED from 12/05/2023 FINDINGS: RIGHT BREAST: Mammography/Tomosynthesis: Masses/Architectural Distortion: Persistent nodule noted in the subareolar region. Microcalcifictions: No suspicious pleomorphic-type are seen. Skin Thickening/Nipple Retraction: None. Right breast US: Echotexture: Normal appearance of the glandular tissue. Shadowing: No suspicious foci. Cyst: 7 x 4 x 5 millimeter cyst in the retroareolar region in the 12 o'clock position. 5 millimeter cyst in the 6 o'clock position also in the subareolar region. Solid lesions: None seen. Ductal dilation: None. LEFT BREAST: Mammography/Tomosynthesis: Masses/Architectural Distortion: None seen. Microcalcifictions: No suspicious pleomorphic-type are seen. Skin Thickening/Nipple Retraction: None. Left breast ultrasound: Echotexture: Normal appearance of the glandular tissue. Shadowing: No suspicious foci. Cyst: None. Solid lesions: None seen. Ductal dilation: None. IMPRESSION: 1. Right breast: No evidence of malignancy is noted. 2. Left breast: No evidence of malignancy is noted. 3. Unless there is more urgent need, follow-up screening mammography is recommended, as per [place] [employer] guidelines. 4. The findings were discussed with the patient on the date of the examination. BI-RADS Category 2 - Benign Findings Breast Density - Category C - Heterogeneously dense A mammogram that demonstrates density of C or D indicates the patient's breast tissue is dense. Dense breast tissue is very common and is not abnormal, but dense breast tissue can make it harder to find cancer on a mammogram. Also, dense breast tissue may increase their breast cancer risk. This informa tion about the result of the mammogram report was provided to the patient to raise their awareness. U se this report when you speak with the patient about their risks for breast cancer, which includes th eir family history. At that time, you may recommend for more screening tests (Ultrasound or MRI) as t hey might be useful based on their risk. A negative radiographic report should not delay biopsy if a dominant or clinically suspicious mass is present. Up to ten percent of cancers are not identified on mammography. A negative report may reinforce clinical impression. Adenosis and dense breasts may obscure an underlying neoplasm. False positive reports average 6 to 10%. Patient will receive a letter notifying them of these results.
== END ==
PROVIDERS: PCP Nurse Practitioner Family; Visit Provider Nurse Practitioner Women's Health
DX: R92.8 Other abnormal and inconclusive findings on diagnostic imaging of breast (principal); R92.333 Mammographic heterogeneous density, bilateral breasts
CPT/HCPCS: 76642; 77063; 77067

== ENCOUNTER 2024-01-28 03:10 | Outpatient (CLI) | payer OTHER, SELFPAY ==
[2024-01-28 17:47] LABS: Magnesium 1.9 mg/dL (1.8-2.4)
== END 2024-01-28 03:11 | disposition home or self-care (01) ==
PROVIDERS: PCP Physician Assistant Medical; Visit Provider Physician Assistant Medical
DX: E83.42 Hypomagnesemia (principal)
CPT/HCPCS: 36415; 83735

== ENCOUNTER 2024-08-20 00:57 | Outpatient (CLI) | payer OTHER, SELFPAY ==
[2024-08-20 16:17] LABS: Iron 45 ug/dL (50-170); Total Iron Binding Capacity 230 ug/dL (250-450); Transferrin Sat 20 % (15-50)
[2024-08-20 16:42] LABS: Ferritin 108 ng/mL (8-252); TSH (W/Ref FT4) 1.66 uIU/mL (0.36-3.74); Vitamin D 25 Total 42 ng/mL (30-100)
== END 2024-08-20 00:58 | disposition home or self-care (01) ==
PROVIDERS: PCP Physician Assistant Medical; Visit Provider Physician Assistant Medical
DX: I47.20 Ventricular tachycardia, unspecified (principal); R00.2 Palpitations
CPT/HCPCS: 36415; 82306; 82728; 83540; 83550; 83735; 84443

== ENCOUNTER 2024-11-05 01:37 | Outpatient (CLI) | payer OTHER, SELFPAY | END 2024-11-05 01:38 | disposition home or self-care (01) | PROVIDERS: PCP Physician Assistant Medical; Visit Provider Physician Assistant | DX: L50.8 Other urticaria (principal); T78.2XXA Anaphylactic shock, unspecified, initial encounter; Z91.09 Other allergy status, other than to drugs and biological substances | CPT/HCPCS: 36415; 83520 ==

== ENCOUNTER 2025-01-11 02:32 | Outpatient (CLI) | payer OTHER, SELFPAY ==
[2025-01-11 15:01] LABS: Abs Immature Grans 0.03 10^3/uL (0.0-0.06); HCT 40.3 % (36.0-46.0); HGB 13.5 g/dL (11.2-15.7); Immature Grans % 0.4 %; MCH 32.1 pg (27.0-33.0); MCHC 33.5 % (32.0-36.0); MCV 96 fL (80-95); MPV 9.2 fL (8.0-11.0); Platelet Count 266 10^3/uL (130-400); RBC 4.20 10^6/uL (3.93-5.22); RDW 11.9 % (11.7-14.6); RDW-SD 41.5 fL; WBC 7.42 10^3/uL (4.4-10.8)
[2025-01-11 15:31] LABS: ALT 27 U/L (14-59); AST 24 U/L (15-37); Albumin 3.7 g/dL (3.4-5.0); Alkaline Phosphatase 51 U/L (46-116); Anion Gap 5.6 mmol/L (3-11); BUN 9 mg/dL (7-18); Bilirubin, Total 0.9 mg/dL (0.2-1.0); CO2 31.4 mmol/L (21.0-32.0); Calcium 8.7 mg/dL (8.5-10.1); Chloride 104 mmol/L (98-107); Estimated GFR 109.30 (mL/min/1.73m2); Glucose 82 mg/dL (74-106); Potassium 4.1 mmol/L (3.5-5.1); Sodium 141 mmol/L (136-145); Total Protein 6.4 g/dL (6.4-8.2)
== END 2025-01-11 02:33 | disposition home or self-care (01) ==
PROVIDERS: PCP Physician Assistant Medical; Visit Provider Physician Assistant Medical
DX: R11.0 Nausea (principal)
CPT/HCPCS: 36415; 80053; 85025

== ENCOUNTER 2025-01-11 15:00 | Outpatient (CLI) | payer OTHER, SELFPAY ==
--- NOTE | 2025-01-11 | DI.RAD_ITS ---
Exam(s) XR CERVICAL SPINE COMP 4-5V EXAM: XR CERVICAL SPINE COMP 4-5V CLINICAL HISTORY: CERVICALGIA M54.2 CHRONIC PAIN G89.29. TECHNIQUE: 2D digital imaging was performed. Five views were performed. COMPARISON: No exams were available for comparison FINDINGS: The AP views limited by the patient tear. BONES: No fracture or destructive lesion. Vertebral bodies are unremarkable. There are facet degenerative changes which mildly encroach into the right neural foramen at C 5- 6. DISKS: There is mild narrowing of the C5-6 disc space. The remaining intervertebral disc spaces are maintained. Minimal endplate osteophytes. ALIGNMENT: Some straightening of the normal cervical lordosis. The odontoid and atlantoaxial articulations are normal. SOFT TISSUE: Normal. The lung apices are clear. IMPRESSION: Mild degenerative changes at C5-6 with mild right neural foraminal narrowing. DATA REPOSITORY: RADIATION DOSE DELIVERED:
--- NOTE | 2025-01-11 | DI.RAD_ITS ---
Exam(s) XR THORACIC SPINE COMPLETE EXAM: XR THORACIC SPINE COMPLETE CLINICAL HISTORY: DORSALGIA M54.9 UPPER BACK PAIN. TECHNIQUE: 2D digital imaging was performed. Three views. COMPARISON: No exams were available for comparison FINDINGS: BONES: There is no fracture or destructive lesion. The vertebral bodies and posterior elements are unremarkable. ALIGNMENT: Within normal limits. DISKS: Interverebral disc spaces are maintained. Minimal degenerative changes. SOFT TISSUE: Visualized lungs are clear. IMPRESSION: Minimal degenerative changes. DATA REPOSITORY: RADIATION DOSE DELIVERED:
== END 2025-01-11 15:20 ==
LOC: DI 15:00
PROVIDERS: PCP Physician Assistant Medical; Visit Provider Physician Assistant Medical
DX: M54.9 Dorsalgia, unspecified (principal); M50.022 Cervical disc disorder at C5-C6 level with myelopathy
CPT/HCPCS: 72050; 72072

== ENCOUNTER 2025-01-14 01:15 | Outpatient (CLI) | payer OTHER, SELFPAY ==
--- NOTE | 2025-01-14 15:00 | DI.MAMMO_ITS ---
Exam(s) MAMMO SCREENING EXAM: MAMMO SCREENING CLINICAL HISTORY: screening. TECHNIQUE: Bilateral full field digital CC and MLO mammographic images were obtained with 3D tomosynthesis and utilizing computer aided detection (CAD). COMPARISON: Prior mammograms were reviewed. Prior ultrasound examinations of November 2023 reviewed. FINDINGS: There has been no significant change in the appearance and distribution of the fibroglandular tissue. There are no CAD designations. There are no new spiculated masses nor new malignant appearing microcalcification groups. There is no significant architectural distortion nor skin thickening-retraction. IMPRESSION: No radiographic evidence of malignancy. BI-RADS Category 1 - Negative Breast Density - Category C - The breast are heterogeneously dense, which may obscure small masses. Breast density Category C or D implies that the patient has dense breast tissue. Dense breast tissue can make it harder to find cancer on a mammogram. Dense breast tissue is also associated with an increased risk of breast cancer. This information about the result of the mammogram report was provided to the patient to raise their awareness. Use this report when you speak with the patient about their risks for breast cancer, which includes their family history. At that time, you may recommend additional screening tests (Ultrasound or MRI) as these tests may add significant information. A negative radiographic report should not delay biopsy if a dominant or clinically suspicious mass is present. Up to ten percent of cancers are not identified on mammography. A negative report may reinforce clinical impression. Adenosis and dense breasts may obscure an underlying neoplasm. False positive reports average 6 to 10%. Patient will receive a letter notifying them of these results.
== END 2025-01-14 01:35 ==
LOC: DI 01:16
PROVIDERS: PCP Physician Assistant Medical; Visit Provider Nurse Practitioner Women's Health
DX: Z12.31 Encounter for screening mammogram for malignant neoplasm of breast (principal); R92.333 Mammographic heterogeneous density, bilateral breasts
CPT/HCPCS: 77063; 77067

== ENCOUNTER 2025-01-26 14:55 | Outpatient (CLI) | payer OTHER, SELFPAY ==
--- NOTE | 2025-01-26 | DI.MRI_ITS ---
Exam(s) MR CERVICAL SPINE WO EXAM: MR CERVICAL SPINE WO CLINICAL HISTORY: CERVICALGIA M54.2 NECK PAIN FU XR 01/11/25 TECHNIQUE: Multiplanar multisequence MRI of the cervical spine was performed without intravenous contrast. COMPARISON: CR XR CERVICAL SPINE COMP 4-5V from 01/11/2025 FINDINGS: BONES: Vertebral body heights are maintained. Intervertebral disc spaces are normal. Alignment is normal. Bone marrow signal intensity is within normal limits. CERVICAL CORD: Craniovertebral junction is unremarkable. The cervical cord is normal size and signal intensity. SOFT TISSUES: Unremarkable. C2-3: No disc herniation or bulge is identified. No significant central spinal canal or neural foraminal stenosis. C3-4: No disc herniation or bulge is identified. No significant central spinal canal or neural foraminal stenosis C4-5: No disc herniation or bulge is identified. No significant central spinal canal or neural foraminal stenosis C5-6: No disc herniation or bulge is identified. No significant central spinal canal or neural foraminal stenosis C6-7: There is a moderate size central disc herniation at this level. No significant central spinal canal or neural foraminal stenosis C7-T1: No disc herniation or bulge is identified. No significant central spinal canal or neural foraminal stenosis IMPRESSION: Moderate size central disc herniation at C6-C7. No spinal cord compression or nerve root compression is seen. DATA REPOSITORY:
== END 2025-01-26 15:15 ==
LOC: DI 14:55
PROVIDERS: PCP Physician Assistant Medical; Visit Provider Physician Assistant Medical
DX: M50.223 Other cervical disc displacement at C6-C7 level (principal)
CPT/HCPCS: 72141